=== PATIENT | male | born 1970 | race Caucasian/White ===

== ENCOUNTER → 2016-11-01 | Outpatient (CLI) | payer MEDICAID ==
[~2016-11-01] MED LIST: ARIP300S3 INJ; QUET100T4 PO
[2016-11-01 11:01] LABS: EPI LOT# 5695218
[2016-11-01 11:14] LABS: HCT (PFA) 47.2 % (39.2-51.8); PLATELET (PFA) 252 x10^3/uL (130-400)
[2016-11-01 11:17] LABS: ASPARTATE AMINO TRANSFERASE 16 U/L (15-37); BLOOD UREA NITROGEN 17 mg/dL (7-18)
[2016-11-01 12:26] LABS: EPI CARTRIDGE 118 SECONDS (72-193)
== END | disposition home or self-care (01) ==
LOC: STAR 09:58
PROVIDERS: ATTEND Neurological Surgery
DX: Z01.818 Encounter for other preprocedural examination (principal); G25.0 Essential tremor; R79.1 Abnormal coagulation profile
CPT/HCPCS: 36415; 71020; 80053; 81003; 85014; 85025; 85049; 85576; 85610; 85730; 93005

== ENCOUNTER 2016-11-05 10:42 | Day surgery (SDC) | payer MEDICAID ==
[~2016-11-05] VITALS: Ht 180.3 cm; Wt 100.9 kg
[2016-11-05 11:40] VITALS: BP 139/87
[2016-11-05] MEDS ORDERED: LIDOCAINE 1%, 2ML ONE (11:55)
[2016-11-05] MEDS ORDERED: ONDANSETRON 2MG/ML, 2ML ONE (12:38)
[2016-11-05] MEDS ORDERED: PROPOFOL 10 MG/ML, 20ML ONE (12:38)
[2016-11-05] MEDS ORDERED: ONDANSETRON 2MG/ML, 2ML IVPush PRN (14:00)
[2016-11-05] MEDS ORDERED: LABETALOL 5MG/ML, 20ML IV PRN (14:00)
[2016-11-05] MEDS ORDERED: METOPROLOL 1 MG/ML, 5ML IV PRN (14:00)
[2016-11-05] MEDS ORDERED: MEPERIDINE/PF 25MG/0.5ML IVPush PRN (14:00)
[2016-11-05] MEDS ORDERED: EPHEDRINE 50 MG/ML, 1ML IVPush PRN (14:00)
[2016-11-05] MEDS ORDERED: hydrALAzine 20 MG/ML, 1ML IV PRN (14:00)
[2016-11-05] MEDS ORDERED: ALBUTEROL SULFATE 2.5 MG/3 ML NPPB PRN (14:00)
[2016-11-05] MEDS ORDERED: MEPERIDINE/PF 25MG/0.5ML ONE (14:06)
== END 2016-11-05 15:05 | disposition home or self-care (01) ==
LOC: OUT 10:42 → EDSTATUS 13:00 → OUT 15:05
PROVIDERS: ATTEND Neurological Surgery
DX: I67.89 Other cerebrovascular disease (principal)
CPT/HCPCS: 70553; A9585; J2175; J2405; J2704

== ENCOUNTER 2016-11-11 05:40 | Inpatient (IN) | payer MEDICAID ==
[~2016-11-11] VITALS: Ht 180.3 cm; Wt 104.3 kg
[2016-11-11] MEDS ORDERED: CEFUROXIME 1.5 GM ONE ×2 (06:06→07:14)
[2016-11-11] MEDS ORDERED: LIDOCAINE/MPF 2%-EPI 1:200K, 20 ML ONE (06:06)
[2016-11-11] MEDS ORDERED: SODIUM BICARBONATE 1 MEQ/ML, 50ML VIAL ONE (06:06)
[2016-11-11] MEDS ORDERED: BUPIVACAINE/PF 0.5% ONE (06:06)
[2016-11-11] MEDS ORDERED: NITROPRUSSIDE 25 MG/ML, 2ML ONE (06:10)
[2016-11-11] MEDS ORDERED: MINERAL OIL 10 ML VIAL MC ONE (06:11)
[2016-11-11] MEDS ORDERED: BACITRACIN OINT 500U/GM, 15 GM ONE (06:11)
[2016-11-11] MEDS ORDERED: BACITRACIN 50,000 UNIT ONE (06:12)
[2016-11-11] MEDS ORDERED: LACTATED RINGERS 1,000 ML IV SCH ×2 (06:12→06:36)
[2016-11-11] MEDS ORDERED: THROMBIN 5,000 UNIT VIAL TP ONE (06:12)
[2016-11-11] MEDS ORDERED: LIDOCAINE GEL 2%, 5ML ONE (06:57)
[2016-11-11] MEDS ORDERED: PROPOFOL 10 MG/ML, 20ML ONE (07:14)
[2016-11-11] MEDS ORDERED: FENTANYL PF 100 MCG/2ML IV PRN (09:30)
[2016-11-11] MEDS ORDERED: OXYcodone 5 MG/5 ML ORAL.SOL UDC PO PRN (09:30)
[2016-11-11] MEDS ORDERED: MIDAZOLAM 1 MG/ML, 2ML IV PRN (09:30)
[2016-11-11] MEDS ORDERED: ONDANSETRON 2MG/ML, 2ML IVPush PRN (09:30)
[2016-11-11] MEDS ORDERED: hydrALAzine 20 MG/ML, 1ML IV PRN ×2 (09:30→14:00)
[2016-11-11] MEDS ORDERED: MEPERIDINE/PF 25MG/0.5ML IVPush PRN (09:30)
[2016-11-11] MEDS ORDERED: PROMETHAZINE 25 MG/ML, 1ML IV PRN (09:30)
[2016-11-11] MEDS ORDERED: LABETALOL 5MG/ML, 20ML IV PRN (09:30)
[2016-11-11] MEDS ORDERED: HYDROmorphone 2 MG/ML, 1ML ONE (11:35)
[2016-11-11] MEDS ORDERED: OXYcodone 5 MG/5 ML ORAL.SOL UDC ONE (11:35)
[2016-11-11] MEDS: HYDROmorphone 1 MG/ML, 1ML IV PRN ×4 (11:40→12:30)
[2016-11-11] MEDS ORDERED: hydrALAzine 20 MG/ML, 1ML ONE (12:09)
[2016-11-11] MEDS ORDERED: ONDANSETRON 2MG/ML, 2ML IV PRN (14:00)
[2016-11-11] MEDS ORDERED: MAGNESIUM HYDROXIDE 8%, 30ML UDC PO PRN (14:00)
[2016-11-11] MEDS ORDERED: BISACODYL 10 MG SUPP PR PRN (14:00)
[2016-11-11] MEDS ORDERED: ACETAMINOPHEN 325 MG TABLET PO PRN (14:00)
[2016-11-11] MEDS ORDERED: ACETAMINOPHEN 650 MG SUPP PR PRN (14:00)
[2016-11-11] MEDS: morphine SULFATE 10 MG/ML, 1ML IV PRN ×4 (14:21→23:28)
[2016-11-11] MEDS: HYDROcodone/APAP 5/325 TABLET PO PRN ×2 (14:21→15:37)
[2016-11-11] MEDS: NS + 20MEQ KCL 1,000 ML IV SCH (14:21)
[2016-11-11] MEDS: DEXAMETHASONE 4 MG/ML, 1ML IV SCH ×2 (14:21→20:33)
[2016-11-11 15:18] VITALS: BP_SYST 125; BP_SYST 134; BP_DIAS 80; BP_DIAS 89
[2016-11-11] MEDS: CEFUROXIME 1.5 GM in SODIUM CHLORIDE 0.9% 50 ML IVPB SCH (15:37)
[2016-11-11] MEDS: OXYcodone/APAP 5/325MG TABLET PO PRN ×2 (18:07→23:10)
[2016-11-11] MEDS: LABETALOL 5MG/ML, 20ML IV PRN (19:13)
[2016-11-11] MEDS ORDERED: QUETIAPINE 100MG TABLET PO SCH (21:00)
[2016-11-11] MEDS: DIPHENHYDRAMINE 50 MG/ML, 1ML IV PRN (21:14)
[2016-11-12] MEDS: CEFUROXIME 1.5 GM in SODIUM CHLORIDE 0.9% 50 ML IVPB SCH (00:05)
[2016-11-12] MEDS: DEXAMETHASONE 4 MG/ML, 1ML IV SCH ×2 (02:00→08:03)
[2016-11-12] MEDS: DIPHENHYDRAMINE 50 MG/ML, 1ML IV PRN (02:32)
[2016-11-12 02:45] LABS: HEMATOCRIT 45.7 % (39.2-51.8); HEMOGLOBIN 15.7 g/dL (13.7-18.0); WHITE BLOOD COUNT 13.8 x10^3/uL (3.4-10)
[2016-11-12 02:47] LABS: BLOOD UREA NITROGEN 15 mg/dL (7-18)
[2016-11-12] MEDS: morphine SULFATE 10 MG/ML, 1ML IV PRN (03:26)
[2016-11-12 04:00] VITALS: BP 128/78
[2016-11-12] MEDS: OXYcodone/APAP 5/325MG TABLET PO PRN ×2 (05:38→09:51)
[2016-11-12] MEDS: NS + 20MEQ KCL 1,000 ML IV SCH (05:39)
[2016-11-12] MEDS ORDERED: MORPHINE SULFATE 4 MG/ML, 1ML ONE (07:15)
[2016-11-12] MEDS ORDERED: MORPHINE SULFATE 4 MG/ML, 1ML IV PRN (08:00)
[2016-11-12] MEDS ORDERED: CEPH-368 PO (08:43)
[2016-11-12] MEDS ORDERED: OXYC-302 PO (08:43)
[2016-11-12] MEDS ORDERED: SENNA/DOCUSATE TABLET PO SCH (09:00)
[2016-11-12] MEDS ORDERED: QUETIAPINE 100MG TABLET PO SCH (09:00)
[2016-11-12] MEDS: LABETALOL 5MG/ML, 20ML IV PRN (09:55)
== END 2016-11-12 10:51 | disposition home or self-care (01) | DRG 27 ==
LOC: ORIP 05:40 → CCU 13:00 → DCLOUNGE 11-12 10:36
PROVIDERS: ADMIT Neurological Surgery; ATTEND Neurological Surgery
PROC: 4B00XVZ Measurement of Central Nervous Stimulator, External Approach (ICD-10-PCS; 2016-11-11)
PROC: 00H03MZ Insertion of Neurostimulator Lead into Brain, Percutaneous Approach (ICD-10-PCS; principal; 2016-11-11 07:30)
DX: G25.0 Essential tremor (principal); M19.90 Unspecified osteoarthritis, unspecified site; Z98.1 Arthrodesis status; Z87.891 Personal history of nicotine dependence; Z82.61 Family history of arthritis; Z83.3 Family history of diabetes mellitus
CPT/HCPCS: 36415; 70450; 80048; 85025; 86850; 86900; 87081; J0697; J1100; J1170; J2704; J3480; J3490; J0360; J1200; J2270; J7120

== ENCOUNTER 2016-11-12 21:40 | Emergency (ER) | payer MEDICAID ==
[~2016-11-12] VITALS: Ht 180.3 cm; Wt 104.2 kg
[~2016-11-12 21:40] MED LIST changes: +CEPH-368 PO; +OXYC-302 PO
[2016-11-12 22:32] VITALS: BP 136/94
[2016-11-12] MEDS ORDERED: BACITRACIN ZINC OINT 500U/GM, 0.9 GM ONE (22:53)
== END 2016-11-12 23:19 | disposition home or self-care (01) ==
LOC: ED 23:13
DX: G97.82 Other postprocedural complications and disorders of nervous system (principal)
CPT/HCPCS: 99281

== ENCOUNTER 2016-11-25 10:08 | Day surgery (SDC) | payer MEDICAID ==
[~2016-11-25] VITALS: Ht 180.3 cm; Wt 100.1 kg
[2016-11-25 10:25] VITALS: BP 132/85
[2016-11-25] MEDS ORDERED: LIDOCAINE 1%, 2ML ONE (10:29)
[2016-11-25] MEDS ORDERED: BUPIVACAINE/PF 0.5% ONE (10:32)
[2016-11-25] MEDS ORDERED: EPINEPHRINE 1 MG/ML, 1ML ONE (10:32)
[2016-11-25] MEDS ORDERED: BACITRACIN OINT 500U/GM, 15 GM ONE (10:33)
[2016-11-25] MEDS ORDERED: BACITRACIN 50,000 UNIT ONE (10:33)
[2016-11-25] MEDS ORDERED: THROMBIN 5,000 UNIT VIAL TP ONE (10:33)
[2016-11-25] MEDS ORDERED: FENTANYL PF 100 MCG/2ML ONE ×4 (11:01→13:23)
[2016-11-25] MEDS ORDERED: PROPOFOL 10 MG/ML, 20ML ONE (11:05)
[2016-11-25] MEDS ORDERED: CEFAZOLIN 1,000 MG ONE (11:05)
[2016-11-25] MEDS ORDERED: ONDANSETRON 2MG/ML, 2ML ONE (11:05)
[2016-11-25] MEDS ORDERED: hydrALAzine 20 MG/ML, 1ML IV PRN (11:30)
[2016-11-25] MEDS ORDERED: MEPERIDINE/PF 25MG/0.5ML IVPush PRN (11:30)
[2016-11-25] MEDS ORDERED: ONDANSETRON 2MG/ML, 2ML IVPush PRN (11:30)
[2016-11-25] MEDS ORDERED: MIDAZOLAM 1 MG/ML, 2ML IV PRN (11:30)
[2016-11-25] MEDS ORDERED: PROMETHAZINE 25 MG/ML, 1ML IV PRN (11:30)
[2016-11-25] MEDS ORDERED: LABETALOL 5MG/ML, 20ML IV PRN (11:30)
[2016-11-25] MEDS ORDERED: ACETAMINOPHEN 325 MG TABLET PO PRN (11:30)
[2016-11-25] MEDS ORDERED: ACETAMINOPHEN 650 MG/20.3 ML UDC ONE (12:31)
[2016-11-25] MEDS ORDERED: OXYcodone 5 MG/5 ML ORAL.SOL UDC ONE ×2 (12:31→12:52)
[2016-11-25] MEDS ORDERED: ACETAMINOPHEN 325 MG TABLET ONE (12:31)
[2016-11-25] MEDS: FENTANYL PF 100 MCG/2ML IV PRN ×4 (12:40→13:52)
[2016-11-25] MEDS: OXYcodone 5 MG/5 ML ORAL.SOL UDC PO PRN ×2 (12:40→12:50)
[2016-11-25] MEDS ORDERED: HYDROmorphone 1 MG/ML, 1ML ONE ×2 (13:06→13:46)
[2016-11-25] MEDS: HYDROmorphone 1 MG/ML, 1ML IV PRN ×5 (13:09→14:00)
[2016-11-25] MEDS ORDERED: MIDAZOLAM 1 MG/ML, 2ML ONE (13:23)
[2016-11-25] MEDS ORDERED: LABETALOL 5MG/ML, 20ML ONE (13:42)
[2016-11-25] MEDS ORDERED: OXYcodone IR 5MG TABLET PO ONE (15:30)
== END 2016-11-25 16:00 | disposition home or self-care (01) ==
LOC: OUT 10:08
PROVIDERS: ATTEND Neurological Surgery
DX: G25.0 Essential tremor (principal); Z98.890 Other specified postprocedural states; Z87.39 Personal history of other diseases of the musculoskeletal system and connective tissue; Z87.891 Personal history of nicotine dependence
CPT/HCPCS: 64568; 70250; 76000; 95971; C1767; C1883; J0171; J0690; J1170; J2250; J2405; J2704; J3010; J3490; L8681

== ENCOUNTER 2016-11-30 09:11 | Emergency (ER) | payer MEDICAID ==
[~2016-11-30] VITALS: Ht 180.3 cm; Wt 99.0 kg
[2016-11-30] MEDS ORDERED: ONDANSETRON 2MG/ML, 2ML ONE (09:57)
[2016-11-30] MEDS ORDERED: HYDROmorphone 1 MG/ML, 1ML ONE ×2 (09:57→11:07)
[2016-11-30] MEDS ORDERED: ONDANSETRON 2MG/ML, 2ML IVPush ONE (10:00)
[2016-11-30] MEDS ORDERED: SODIUM CHLORIDE FLUSH 10ML SYR IVF ONE (10:00)
[2016-11-30] MEDS ORDERED: DIAZEPAM 5 MG/ML, 2ML IVPush ONE (10:00)
[2016-11-30] MEDS: HYDROmorphone 1 MG/ML, 1ML IVPush PRN ×2 (10:02→11:10)
[2016-11-30 10:04] LABS: HEMOGLOBIN 16.7 g/dL (13.7-18.0); WHITE BLOOD COUNT 8.2 x10^3/uL (3.4-10)
[2016-11-30 10:13] LABS: BLOOD UREA NITROGEN 17 mg/dL (7-18)
[2016-11-30 13:04] VITALS: BP 131/89
== END 2016-11-30 13:41 | disposition home or self-care (01) ==
LOC: ED 09:37
DX: G44.041 Chronic paroxysmal hemicrania, intractable (principal)
CPT/HCPCS: 36415; 70450; 80048; 82040; 85025; 96374; 96375; 96376; 99285; J1170; J2405; J3360

== ENCOUNTER 2017-11-01 05:17 | Day surgery (SDC) | payer MEDICAID ==
[2017-10-20 10:00] VITALS: BP 117/80
[~2017-11-01] VITALS: Ht 180.3 cm; Wt 80.8 kg
[~2017-11-01 05:17] MED LIST changes: +BENZ2AMP4 INJ; +Cogentin PO
[2017-11-01] MEDS ORDERED: LACTATED RINGERS 1,000 ML IV SCH (05:51)
[2017-11-01 05:54] VITALS: BP 117/80
[2017-11-01] MEDS ORDERED: LIDOCAINE-MPF 1%, 2ML INFIL ONE (06:00)
[2017-11-01] MEDS ORDERED: BACITRACIN 50,000 UNIT ONE (06:47)
[2017-11-01] MEDS ORDERED: EPINEPHRINE 1 MG/ML, 1ML ONE (06:47)
[2017-11-01] MEDS ORDERED: BUPIVACAINE/PF 0.5% ONE (06:47)
[2017-11-01] MEDS ORDERED: THROMBIN 5,000 UNIT VIAL TP ONE (06:47)
[2017-11-01] MEDS ORDERED: BACITRACIN OINT 500U/GM, 15 GM ONE (06:48)
[2017-11-01] MEDS ORDERED: MIDAZOLAM 1 MG/ML, 2ML ONE (07:01)
[2017-11-01] MEDS ORDERED: FENTANYL PF 250 MCG/5ML ONE (07:02)
[2017-11-01] MEDS ORDERED: LIDOCAINE-MPF 2% ,5ML ONE (07:04)
[2017-11-01] MEDS ORDERED: PROPOFOL 10 MG/ML, 20ML ONE (07:04)
[2017-11-01] MEDS ORDERED: OXYcodone 5 MG/5 ML ORAL.SOL UDC PO PRN (07:30)
[2017-11-01] MEDS ORDERED: FENTANYL PF 100 MCG/2ML IV PRN (07:30)
[2017-11-01] MEDS ORDERED: MORPHINE SULFATE 4 MG/ML, 1ML IVPush PRN (07:30)
[2017-11-01] MEDS ORDERED: KETOROLAC 30 MG/1 ML ONE (07:30)
[2017-11-01] MEDS ORDERED: ACETAMINOPHEN 325 MG TABLET PO PRN (07:30)
[2017-11-01] MEDS ORDERED: MEPERIDINE/PF 25MG/0.5ML IVPush PRN (07:30)
[2017-11-01] MEDS ORDERED: CEFAZOLIN 1,000 MG ONE (07:30)
[2017-11-01] MEDS ORDERED: ONDANSETRON 2MG/ML, 2ML IV PRN (07:30)
[2017-11-01] MEDS ORDERED: LABETALOL 5MG/ML, 20ML IV PRN (07:30)
[2017-11-01] MEDS ORDERED: ONDANSETRON 2MG/ML, 2ML ONE (07:47)
[2017-11-01] MEDS ORDERED: DEXAMETHASONE 4 MG/ML, 1ML ONE ×3 (07:47)
== END 2017-11-01 10:40 | disposition home or self-care (01) ==
LOC: OUT 05:17
PROVIDERS: ATTEND Neurological Surgery
DX: Z45.49 Encounter for adjustment and management of other implanted nervous system device (principal); G25.0 Essential tremor; Z87.39 Personal history of other diseases of the musculoskeletal system and connective tissue; Z98.890 Other specified postprocedural states; Z87.891 Personal history of nicotine dependence; Z79.899 Other long term (current) drug therapy; Z95.0 Presence of cardiac pacemaker
CPT/HCPCS: 36415; 61886; 86850; 86900; C1767; J0171; J0690; J1100; J1885; J2250; J2405; J2704; J3010; J3490; J7120

== ENCOUNTER 2019-05-08 08:00 | Outpatient (CLI) | payer MEDICAID ==
[2019-05-08] MEDS ORDERED: NONE PER PT (08:30)
[2019-05-08 08:47] LABS: BASOPHILS # (AUTO) 0.07 x10^3/uL (0-0.1); BASOPHILS % (AUTO) 1 % (0-1); EOSINOPHILS # (AUTO) 0.06 x10^3/uL (0-0.4); EOSINOPHILS % (AUTO) 1 % (1-7); LYMPHOCYTES # (AUTO) 1.91 x10^3/uL (1-3.4); LYMPHOCYTES % (AUTO) 40 % (22-44); MD NO; MEAN CORPUSCULAR HGB CONC 34.7 g/dL (33.2-36.2); MEAN PLATELET VOLUME 6.7 fL (7.4-10.4); MONOCYTES # (AUTO) 0.54 x10^3/uL (0.2-0.8); MONOCYTES % (AUTO) 11 % (2-9); NEUTROPHILS # (AUTO) 2.17 x10^3/uL (1.8-6.8); NEUTROPHILS % (AUTO) 46 % (42-75); PLATELET COUNT 323 x10^3/uL (130-400); RED BLOOD COUNT 4.65 x10^6/uL (4.38-5.82); RED CELL DISTRIBUTION WIDTH 13.4 % (9.4-14.8)
[2019-05-08 08:56] LABS: ANION GAP 4 mmol/L (5-15); CALCIUM 8.9 mg/dL (8.5-10.1); CHLORIDE 116 mmol/L (98-107); CREATININE 1.01 mg/dL (0.7-1.3)
[2019-05-08 08:57] LABS: INTERNATIONAL NORMALIZED RATIO 0.98 (0.93-1.1); PROTHROMBIN TIME 10.4 Seconds (9.6-11.5)
== END 2019-05-08 23:59 | disposition home or self-care (01) ==
LOC: STAR 08:00
PROVIDERS: ATTEND Neurological Surgery
DX: Z01.818 Encounter for other preprocedural examination (principal); G25.0 Essential tremor
CPT/HCPCS: 36415; 80048; 85025; 85610; 85730

== ENCOUNTER 2019-05-17 05:27 | Day surgery (SDC) | payer MEDICAID ==
[~2019-05-17] VITALS: Ht 182.9 cm; Wt 73.8 kg
[~2019-05-17 05:27] MED LIST changes: +NONE PER PT
[2019-05-17] MEDS ORDERED: LACTATED RINGERS 1,000 ML IV SCH (06:08)
[2019-05-17 06:18] VITALS: BP 131/92
[2019-05-17] MEDS ORDERED: LIDOCAINE-MPF 1%, 2ML ONE (06:26)
[2019-05-17] MEDS ORDERED: LIDOCAINE-MPF 1%, 2ML INFIL ONE (06:30)
[2019-05-17] MEDS ORDERED: BACITRACIN OINT 500U/GM, 15 GM ONE (07:04)
[2019-05-17] MEDS ORDERED: BUPIVACAINE/PF 0.5% ONE (07:04)
[2019-05-17] MEDS ORDERED: EPINEPHRINE 1 MG/ML, 1ML ONE (07:04)
[2019-05-17] MEDS ORDERED: BACITRACIN 50,000 UNIT ONE (07:04)
[2019-05-17] MEDS ORDERED: MIDAZOLAM 1 MG/ML, 2ML ONE (07:20)
[2019-05-17] MEDS ORDERED: FENTANYL PF 250 MCG/5ML ONE (07:20)
[2019-05-17] MEDS ORDERED: PROMETHAZINE 12.5 MG SUPP PR PRN (07:30)
[2019-05-17] MEDS ORDERED: HYDROmorphone 2 MG/ML, 1ML IVPush PRN (07:30)
[2019-05-17] MEDS ORDERED: ONDANSETRON 2MG/ML, 2ML IV PRN (07:30)
[2019-05-17] MEDS ORDERED: FENTANYL PF 100 MCG/2ML IV PRN (07:30)
[2019-05-17] MEDS ORDERED: PROMETHAZINE 25 MG SUPP PR PRN (07:30)
[2019-05-17] MEDS ORDERED: LORazepam 2 MG/ML, 1ML IVPush PRN (07:30)
[2019-05-17] MEDS ORDERED: DIAZEPAM 5 MG/ML, 2ML IVPush PRN (07:30)
[2019-05-17] MEDS ORDERED: ACETAMINOPHEN 325 MG TABLET PO PRN (07:30)
[2019-05-17] MEDS ORDERED: LIDOCAINE PF 2%, 5ML ONE (07:38)
[2019-05-17] MEDS ORDERED: CEFAZOLIN 1,000 MG ONE (07:57)
[2019-05-17] MEDS ORDERED: ONDANSETRON 2MG/ML, 2ML ONE (07:57)
[2019-05-17] MEDS ORDERED: PROPOFOL 10 MG/ML, 20ML ONE (07:57)
[2019-05-17] MEDS ORDERED: DEXAMETHASONE 4 MG/ML, 1ML ONE (07:57)
[2019-05-17] MEDS ORDERED: OXYcodone 5 MG/5 ML ORAL.SOL UDC ONE (08:58)
[2019-05-17] MEDS ORDERED: ACETAMINOPHEN 650 MG/20.3 ML UDC ONE (08:58)
[2019-05-17] MEDS: OXYcodone 5 MG/5 ML ORAL.SOL UDC PO PRN ×2 (09:00→09:30)
== END 2019-05-17 10:25 | disposition home or self-care (01) ==
LOC: OUT 05:27
PROVIDERS: ATTEND Neurological Surgery
DX: Z46.2 Encounter for fitting and adjustment of other devices related to nervous system and special senses (principal); G25.0 Essential tremor; Z79.899 Other long term (current) drug therapy; Z98.1 Arthrodesis status; Z82.61 Family history of arthritis; Z82.49 Family history of ischemic heart disease and other diseases of the circulatory system; Z83.3 Family history of diabetes mellitus
CPT/HCPCS: 61886; C1767; J0171; J0690; J1100; J2250; J2405; J2704; J3010

== ENCOUNTER 2020-03-13 08:59 | Day surgery (SDC) | payer MEDICAID ==
[2020-03-11 09:28] LABS: BASOPHILS % (AUTO) 1 % (0-1); EOSINOPHILS % (AUTO) 2 % (1-7); LYMPHOCYTES % (AUTO) 30 % (22-44); MEAN CORPUSCULAR HEMOGLOBIN 31.7 pg (27.5-34.5); MEAN CORPUSCULAR HGB CONC 35.3 g/dL (33.2-36.2); MEAN PLATELET VOLUME 7.3 fL (7.4-10.4); MONOCYTES % (AUTO) 9 % (2-9); NEUTROPHILS % (AUTO) 59 % (42-75); PLATELET COUNT 283 x10^3/uL (130-400); RED CELL DISTRIBUTION WIDTH 12.9 % (9.4-14.8)
[2020-03-11 09:35] LABS: MD NO
[2020-03-11 09:39] LABS: INTERNATIONAL NORMALIZED RATIO 0.99 (0.93-1.1); PROTHROMBIN TIME 10.5 Seconds (9.6-11.5)
[2020-03-11 09:40] LABS: ANION GAP 4 mmol/L (5-15); CALCIUM 8.7 mg/dL (8.5-10.1); CHLORIDE 107 mmol/L (98-107); CREATININE 1.17 mg/dL (0.7-1.3)
[~2020-03-13] VITALS: Ht 182.9 cm; Wt 71.2 kg
[~2020-03-13 08:59] MED LIST changes: +BACITRACIN 50,000 UNIT ONE; +BUPIVACAINE/PF 0.25% ONE; +EPINEPHRINE 1 MG/ML, 1ML ONE; +NEOSPORIN OINT, 15GM ONE
[2020-03-13] MEDS ORDERED: CHLORHEXIDINE 15 ML UDC MM ONE (09:30)
[2020-03-13] MEDS ORDERED: LACTATED RINGERS 1,000 ML IV SCH (09:30)
[2020-03-13 09:43] VITALS: BP 123/78
[2020-03-13] MEDS ORDERED: LIDOCAINE-MPF 1%, 2ML ONE (10:07)
[2020-03-13] MEDS ORDERED: LIDOCAINE-MPF 1%, 2ML INFIL ONE (10:30)
[2020-03-13] MEDS ORDERED: MIDAZOLAM 1 MG/ML, 2ML ONE ×2 (10:57→10:58)
[2020-03-13] MEDS ORDERED: FENTANYL PF 100 MCG/2ML ONE ×2 (10:58→13:00)
[2020-03-13] MEDS ORDERED: DEXAMETHASONE 4 MG/ML, 1ML ONE (11:11)
[2020-03-13] MEDS ORDERED: PROPOFOL 10 MG/ML, 20ML ONE (11:11)
[2020-03-13] MEDS ORDERED: CEFAZOLIN 1,000 MG ONE (11:11)
[2020-03-13] MEDS ORDERED: ONDANSETRON 2MG/ML, 2ML ONE (11:11)
[2020-03-13] MEDS ORDERED: VANCOMYCIN 500 MG ONE (11:31)
[2020-03-13] MEDS ORDERED: EPHEDRINE 50 MG/ML, 1ML IVPush PRN ×2 (12:00→14:30)
[2020-03-13] MEDS ORDERED: MEPERIDINE/PF 25MG/0.5ML IVPush PRN ×2 (12:00→14:30)
[2020-03-13] MEDS ORDERED: PROMETHAZINE 25 MG/ML, 1ML IVPush PRN ×2 (12:00→14:30)
[2020-03-13] MEDS ORDERED: LABETALOL 5MG/ML, 20ML IV PRN ×2 (12:00→14:30)
[2020-03-13] MEDS ORDERED: ACETAMINOPHEN 325 MG TABLET PO PRN ×2 (12:00→14:30)
[2020-03-13] MEDS ORDERED: LORazepam 2 MG/ML, 1ML IVPush PRN ×2 (12:00→14:30)
[2020-03-13] MEDS ORDERED: hydrALAzine 20 MG/ML, 1ML IV PRN ×2 (12:00→14:30)
[2020-03-13] MEDS ORDERED: HYDROmorphone 1 MG/ML, 1ML INJ IVPush PRN ×2 (12:00→14:30)
[2020-03-13] MEDS ORDERED: METHOCARBAMOL 1,000 MG in DEXTROSE 5% 100 ML IV PRN ×2 (12:00→14:30)
[2020-03-13] MEDS ORDERED: ONDANSETRON 2MG/ML, 2ML IVPush PRN ×2 (12:00→14:30)
[2020-03-13] MEDS ORDERED: FENTANYL PF 100 MCG/2ML IV PRN ×2 (12:00→14:30)
[2020-03-13] MEDS ORDERED: VANCOMYCIN 500 MG IVPB ONE (12:00)
[2020-03-13] MEDS ORDERED: OXYcodone 5 MG/5 ML ORAL.SOL UDC PO PRN ×2 (12:00→14:30)
[2020-03-13] MEDS ORDERED: OXYcodone 5 MG/5 ML ORAL.SOL UDC ONE (13:00)
[2020-03-13] MEDS ORDERED: CEPH-368 PO (13:09)
[2020-03-13] MEDS ORDERED: OXYC-302 PO (13:10)
[2020-03-13] MEDS ORDERED: KETOROLAC 30 MG/1 ML IVPush PRN (14:30)
== END 2020-03-13 23:59 | disposition home or self-care (01) ==
LOC: OUT 08:59
PROVIDERS: ATTEND Neurological Surgery
DX: Z45.42 Encounter for adjustment and management of neurostimulator (principal); G25.0 Essential tremor; M19.90 Unspecified osteoarthritis, unspecified site; F12.90 Cannabis use, unspecified, uncomplicated; Z20.828 Contact with and (suspected) exposure to other viral communicable diseases; Z88.1 Allergy status to other antibiotic agents; Z87.891 Personal history of nicotine dependence; Z79.2 Long term (current) use of antibiotics; Z79.899 Other long term (current) drug therapy; Z72.89 Other problems related to lifestyle; Z82.49 Family history of ischemic heart disease and other diseases of the circulatory system; Z83.3 Family history of diabetes mellitus
CPT/HCPCS: 36415; 61885; 80048; 85025; 85610; 85730; 87070; 87075; 87076; 87186; 87205; C1767; C1883; J0171; J0690; J1100; J1170; J2250; J2405; J2704; J3010; J3370; J7120; U0003

== ENCOUNTER 2020-05-25 07:50 | Inpatient (IN) | payer MEDICAID, OTHER ==
[~2020-05-25] VITALS: Ht 182.9 cm; Wt 68.5 kg
[~2020-05-25 07:50] MED LIST changes: -BACITRACIN 50,000 UNIT ONE; -BUPIVACAINE/PF 0.25% ONE; -EPINEPHRINE 1 MG/ML, 1ML ONE; -NEOSPORIN OINT, 15GM ONE; -OXYC-302 PO; +OXYC1TAB14 PO
--- NOTE | 2020-05-25 08:22 | NUR ---
PT BIB FROM [facility] FOR POSSIBLE INFECTION TO LEFT CHEST. PT HAS A DEEP BRAIN STIMULATOR TO PREVENT TREMORS BUT THE INCISION SITE HAS POSSIBLY BECOME INFECTED. THE AREA IS RED, TENDER TO TOUCH AND HAS SOME CLEAR DRAINAGE. PT RESTING IN [facility]. OFFICER BEDSIDE. CONNECTED TO MONITORING EQUIPMENT
--- NOTE | 2020-05-25 08:39 | NUR ---
requested records from [facility].
[2020-05-25] MEDS ORDERED: KETOROLAC 30 MG/1 ML ONE (08:56)
[2020-05-25] MEDS ORDERED: SODIUM CHLORIDE FLUSH 10ML SYR IVF ONE (09:00)
[2020-05-25] MEDS ORDERED: KETOROLAC 30 MG/1 ML IVPush ONE (09:00)
[2020-05-25 09:10] LABS: BASOPHILS % (AUTO) 1 % (0-1); EOSINOPHILS % (AUTO) 1 % (1-7); LYMPHOCYTES % (AUTO) 35 % (22-44); MEAN CORPUSCULAR HEMOGLOBIN 31.3 pg (27.5-34.5); MEAN CORPUSCULAR HGB CONC 34.9 g/dL (33.2-36.2); MEAN PLATELET VOLUME 7.4 fL (7.4-10.4); MONOCYTES % (AUTO) 8 % (2-9); NEUTROPHILS % (AUTO) 55 % (42-75); PLATELET COUNT 268 x10^3/uL (130-400); RED BLOOD COUNT 5.08 x10^6/uL (4.38-5.82); RED CELL DISTRIBUTION WIDTH 13.5 % (9.4-14.8)
[2020-05-25 09:15] LABS: MD NO
[2020-05-25 09:16] LABS: ALBUMIN 4.2 g/dL (3.4-5.0); ANION GAP 7 mmol/L (5-15); CALCIUM 9.2 mg/dL (8.5-10.1); CHLORIDE 108 mmol/L (98-107)
[2020-05-25] MEDS ORDERED: HYDROcodone/APAP 5/325 TABLET PO ONE (09:30)
[2020-05-25] MEDS ORDERED: HYDROcodone/APAP 5/325 TABLET ONE (09:36)
--- NOTE | 2020-05-25 09:41 | NUR ---
medicated per mar
[2020-05-25] MEDS ORDERED: GABAPENTIN 100 MG CAPSULE PO ONE (10:00)
--- NOTE | 2020-05-25 11:20 | NUR ---
pt to be admitted. medicated per mar
[2020-05-25] MEDS ORDERED: VANCOMYCIN PER PHARMACY MC PRN ×2 (11:30→13:00)
[2020-05-25] MEDS ORDERED: AMPICILLIN/SULBACTAM 3 GM in SODIUM CHLORIDE 0.9% 100 ML IV ONE (11:30)
[2020-05-25] MEDS ORDERED: VANCOMYCIN 1,800 MG in SODIUM CHLORIDE 0.9% 250 ML IV ONE (11:30)
[2020-05-25 11:59] VITALS: BP 138/88
[2020-05-25] MEDS ORDERED: VANCOMYCIN PER PHARMACY MC ONE (13:00)
[2020-05-25] MEDS ORDERED: ONDANSETRON 2MG/ML, 2ML IVPush PRN (13:00)
[2020-05-25] MEDS ORDERED: QUET100T4 PO (13:12)
[2020-05-25] MEDS ORDERED: ARIP15TA3 PO (13:12)
[2020-05-25] MEDS ORDERED: cogentin PO (13:15)
[2020-05-25] MEDS ORDERED: PHARMACOKINETIC CONSULTATION MC ONE (14:00)
[2020-05-25] MEDS ORDERED: PHARMACOKINETIC MONITORING MC PRN (14:00)
[2020-05-25 14:02] VITALS: BP 128/80
[2020-05-25] MEDS: OXYcodone IR 5MG TABLET PO PRN ×2 (15:31→22:21)
[2020-05-25] MEDS: PIPERACILLIN/TAZO/PMX 3.375GM 50 ML IV SCH ×2 (16:59→22:31)
[2020-05-25 18:51] VITALS: BP 123/80
[2020-05-25] MEDS: SODIUM CHLORIDE 0.9% 1,000 ML IV SCH (22:19)
[2020-05-25] MEDS: BENZTROPINE 1 MG TABLET PO SCH (22:20)
[2020-05-25] MEDS: QUETIAPINE 100MG TABLET PO SCH (22:20)
[2020-05-26] MEDS: VANCOMYCIN 1,300 MG in SODIUM CHLORIDE 0.9% 250 ML IV SCH ×3 (00:33→21:29)
[2020-05-26 02:45] VITALS: BP 122/79
[2020-05-26] MEDS: PIPERACILLIN/TAZO/PMX 3.375GM 50 ML IV SCH ×4 (05:12→23:37)
[2020-05-26] MEDS: OXYcodone IR 5MG TABLET PO PRN ×5 (05:14→21:32)
[2020-05-26 06:14] LABS: BASOPHILS % (AUTO) 1 % (0-1); EOSINOPHILS % (AUTO) 3 % (1-7); LYMPHOCYTES % (AUTO) 45 % (22-44); MEAN CORPUSCULAR HEMOGLOBIN 31.1 pg (27.5-34.5); MEAN CORPUSCULAR HGB CONC 34.9 g/dL (33.2-36.2); MEAN PLATELET VOLUME 7.4 fL (7.4-10.4); MONOCYTES % (AUTO) 7 % (2-9); NEUTROPHILS % (AUTO) 44 % (42-75); PLATELET COUNT 236 x10^3/uL (130-400); RED BLOOD COUNT 4.74 x10^6/uL (4.38-5.82); RED CELL DISTRIBUTION WIDTH 13.3 % (9.4-14.8)
[2020-05-26 06:23] LABS: ALBUMIN 3.1 g/dL (3.4-5.0); ANION GAP 7 mmol/L (5-15); CALCIUM 8.2 mg/dL (8.5-10.1); CHLORIDE 109 mmol/L (98-107)
[2020-05-26 06:37] LABS: ALANINE AMINOTRANSFERASE 19 U/L (12-78); ALKALINE PHOSPHATASE 78 U/L (45-117); BILIRUBIN,TOTAL 0.3 mg/dL (0.2-1.0); CREATININE 1.03 mg/dL (0.7-1.3); MD NO; TOTAL PROTEIN 5.8 g/dL (6.4-8.2)
[2020-05-26 07:10] VITALS: BP 121/82
[2020-05-26] MEDS: ACETAMINOPHEN 325 MG TABLET PO PRN (09:15)
[2020-05-26] MEDS: BENZTROPINE 1 MG TABLET PO SCH ×2 (09:16→21:30)
[2020-05-26] MEDS: ARIPIPRAZOLE 15 MG TABLET PO SCH (09:16)
[2020-05-26 14:14] VITALS: BP 120/76
[2020-05-26 19:00] VITALS: BP 107/68
[2020-05-26] MEDS: QUETIAPINE 100MG TABLET PO SCH (21:30)
[2020-05-26] MEDS: SODIUM CHLORIDE 0.9% 1,000 ML IV SCH (21:30)
[2020-05-27 02:51] VITALS: BP 102/68
[2020-05-27] MEDS: OXYcodone IR 5MG TABLET PO PRN ×5 (02:55→20:11)
[2020-05-27] MEDS: PIPERACILLIN/TAZO/PMX 3.375GM 50 ML IV SCH ×4 (05:24→23:14)
[2020-05-27] MEDS: VANCOMYCIN 1,300 MG in SODIUM CHLORIDE 0.9% 250 ML IV SCH ×2 (06:43→18:04)
[2020-05-27 07:30] LABS: BASOPHILS % (AUTO) 1 % (0-1); EOSINOPHILS % (AUTO) 3 % (1-7); LYMPHOCYTES % (AUTO) 45 % (22-44); MEAN CORPUSCULAR HGB CONC 34.7 g/dL (33.2-36.2); MEAN PLATELET VOLUME 7.3 fL (7.4-10.4); MONOCYTES % (AUTO) 9 % (2-9); NEUTROPHILS % (AUTO) 42 % (42-75); PLATELET COUNT 217 x10^3/uL (130-400); RED CELL DISTRIBUTION WIDTH 13.1 % (9.4-14.8)
[2020-05-27 07:31] LABS: MD NO
[2020-05-27 07:41] LABS: CALCIUM 8.7 mg/dL (8.5-10.1); CREATININE 1.09 mg/dL (0.7-1.3)
[2020-05-27] MEDS: ARIPIPRAZOLE 15 MG TABLET PO SCH (07:44)
[2020-05-27] MEDS: BENZTROPINE 1 MG TABLET PO SCH ×2 (07:44→20:11)
[2020-05-27] MEDS ORDERED: NICOTINE 14MG/24 HR PATCH.TD24 TD ONE (08:00)
[2020-05-27 08:04] LABS: ANION GAP 5 mmol/L (5-15); CHLORIDE 108 mmol/L (98-107)
[2020-05-27 08:05] VITALS: BP 112/73
[2020-05-27] MEDS: POLYETHYLENE GLYCOL 17 GM PACKET PO PRN (11:49)
[2020-05-27 13:53] VITALS: BP 110/67
[2020-05-27] MEDS: SODIUM CHLORIDE 0.9% 1,000 ML IV SCH (14:10)
[2020-05-27] MEDS: ACETAMINOPHEN 325 MG TABLET PO PRN (17:16)
[2020-05-27 19:10] VITALS: BP 112/76
[2020-05-27] MEDS: QUETIAPINE 100MG TABLET PO SCH (20:11)
[2020-05-28 04:13] VITALS: BP 113/73
[2020-05-28] MEDS: OXYcodone IR 5MG TABLET PO PRN ×5 (04:21→20:55)
[2020-05-28] MEDS: PIPERACILLIN/TAZO/PMX 3.375GM 50 ML IV SCH ×4 (05:15→22:49)
[2020-05-28] MEDS: SODIUM CHLORIDE 0.9% 1,000 ML IV SCH ×2 (06:05→22:49)
[2020-05-28] MEDS: VANCOMYCIN 1,300 MG in SODIUM CHLORIDE 0.9% 250 ML IV SCH (06:05)
[2020-05-28 06:28] VITALS: BP 120/81
[2020-05-28] MEDS: ARIPIPRAZOLE 15 MG TABLET PO SCH (08:36)
[2020-05-28] MEDS: BENZTROPINE 1 MG TABLET PO SCH ×2 (08:36→20:54)
[2020-05-28] MEDS: NICOTINE 14MG/24 HR PATCH.TD24 TD SCH (09:01)
[2020-05-28] MEDS: POLYETHYLENE GLYCOL 17 GM PACKET PO PRN (11:04)
[2020-05-28 13:30] VITALS: BP 129/84
[2020-05-28 20:11] VITALS: BP 128/81
[2020-05-28] MEDS: QUETIAPINE 100MG TABLET PO SCH (20:54)
[2020-05-29 03:01] VITALS: BP 117/74
[2020-05-29] MEDS: OXYcodone IR 5MG TABLET PO PRN ×6 (03:08→22:08)
[2020-05-29] MEDS: PIPERACILLIN/TAZO/PMX 3.375GM 50 ML IV SCH ×3 (05:21→18:02)
[2020-05-29 07:15] VITALS: BP 117/76
[2020-05-29 07:31] LABS: BASOPHILS % (AUTO) 1 % (0-1); EOSINOPHILS % (AUTO) 4 % (1-7); LYMPHOCYTES % (AUTO) 44 % (22-44); MEAN CORPUSCULAR HEMOGLOBIN 30.7 pg (27.5-34.5); MEAN CORPUSCULAR HGB CONC 34.4 g/dL (33.2-36.2); MONOCYTES % (AUTO) 10 % (2-9); NEUTROPHILS % (AUTO) 41 % (42-75); PLATELET COUNT 238 x10^3/uL (130-400); RED BLOOD COUNT 4.77 x10^6/uL (4.38-5.82); RED CELL DISTRIBUTION WIDTH 13.3 % (9.4-14.8)
[2020-05-29 07:32] LABS: MD NO
[2020-05-29 07:43] LABS: ANION GAP 4 mmol/L (5-15); CALCIUM 8.9 mg/dL (8.5-10.1); CHLORIDE 106 mmol/L (98-107)
[2020-05-29] MEDS: BENZTROPINE 1 MG TABLET PO SCH ×2 (08:18→20:43)
[2020-05-29] MEDS: ARIPIPRAZOLE 15 MG TABLET PO SCH (08:18)
[2020-05-29] MEDS: NICOTINE 14MG/24 HR PATCH.TD24 TD SCH (08:19)
[2020-05-29 08:46] LABS: HCT (SEDRATE) 42.5 % (39.2-51.8)
[2020-05-29] MEDS: POLYETHYLENE GLYCOL 17 GM PACKET PO PRN (11:36)
[2020-05-29] MEDS ORDERED: OMNIPAQUE 350 MG/ML, 75ML BOTTLE ONE (12:05)
[2020-05-29] MEDS: SODIUM CHLORIDE 0.9% 1,000 ML IV SCH (13:17)
[2020-05-29 13:33] VITALS: BP 134/88
[2020-05-29] MEDS: morphine SULFATE 10 MG/ML, 1ML IVPush PRN ×2 (18:12→21:19)
[2020-05-29 19:33] VITALS: BP 123/83
[2020-05-29] MEDS: QUETIAPINE 100MG TABLET PO SCH (20:44)
[2020-05-30 00:56] VITALS: BP 104/70
[2020-05-30] MEDS: morphine SULFATE 10 MG/ML, 1ML IVPush PRN ×4 (01:07→20:04)
[2020-05-30] MEDS: PIPERACILLIN/TAZO/PMX 3.375GM 50 ML IV SCH ×4 (01:31→20:03)
[2020-05-30] MEDS: SODIUM CHLORIDE 0.9% 1,000 ML IV SCH (01:35)
[2020-05-30] MEDS: OXYcodone IR 5MG TABLET PO PRN ×4 (05:19→22:05)
[2020-05-30 07:39] VITALS: BP 128/83
[2020-05-30] MEDS: NICOTINE 14MG/24 HR PATCH.TD24 TD SCH (07:49)
[2020-05-30] MEDS: ARIPIPRAZOLE 15 MG TABLET PO SCH (07:50)
[2020-05-30] MEDS: BENZTROPINE 1 MG TABLET PO SCH ×2 (07:50→20:03)
[2020-05-30] MEDS: POLYETHYLENE GLYCOL 17 GM PACKET PO PRN (09:54)
[2020-05-30 12:33] VITALS: BP 126/81
[2020-05-30 19:47] VITALS: BP 144/80
[2020-05-30 19:52] VITALS: BP 109/69
[2020-05-30] MEDS: QUETIAPINE 100MG TABLET PO SCH (20:03)
[2020-05-31 01:07] VITALS: BP 115/76
[2020-05-31] MEDS: PIPERACILLIN/TAZO/PMX 3.375GM 50 ML IV SCH ×4 (01:45→20:42)
[2020-05-31] MEDS: OXYcodone IR 5MG TABLET PO PRN ×4 (02:07→22:39)
[2020-05-31 07:44] VITALS: BP 126/76
[2020-05-31] MEDS: ARIPIPRAZOLE 15 MG TABLET PO SCH (08:15)
[2020-05-31] MEDS: BENZTROPINE 1 MG TABLET PO SCH ×3 (08:15→22:39)
[2020-05-31] MEDS: NICOTINE 14MG/24 HR PATCH.TD24 TD SCH (08:17)
[2020-05-31] MEDS ORDERED: KETOROLAC 30 MG/1 ML IVPush ONE (10:00)
[2020-05-31] MEDS: morphine SULFATE 10 MG/ML, 1ML IVPush PRN (12:42)
[2020-05-31 13:39] VITALS: BP 124/81
[2020-05-31] MEDS: POLYETHYLENE GLYCOL 17 GM PACKET PO PRN (15:25)
[2020-05-31 19:36] VITALS: BP 135/89
[2020-05-31] MEDS: QUETIAPINE 100MG TABLET PO SCH ×2 (20:44→22:39)
[2020-06-01 01:41] VITALS: BP 99/61
[2020-06-01] MEDS: PIPERACILLIN/TAZO/PMX 3.375GM 50 ML IV SCH ×4 (02:28→20:44)
[2020-06-01] MEDS: OXYcodone IR 5MG TABLET PO PRN ×4 (05:11→16:46)
[2020-06-01 08:14] VITALS: BP 127/78
[2020-06-01] MEDS: ARIPIPRAZOLE 15 MG TABLET PO SCH (08:26)
[2020-06-01] MEDS: BENZTROPINE 1 MG TABLET PO SCH ×2 (08:26→20:41)
[2020-06-01] MEDS: NICOTINE 14MG/24 HR PATCH.TD24 TD SCH (08:27)
[2020-06-01] MEDS: POLYETHYLENE GLYCOL 17 GM PACKET PO PRN (12:54)
[2020-06-01 14:02] VITALS: BP 138/90
[2020-06-01] MEDS: MORPHINE SULFATE 4 MG/ML, 1ML IVPush PRN ×2 (14:09→20:40)
[2020-06-01 18:34] VITALS: BP 123/76
[2020-06-01] MEDS: ONDANSETRON ODT 4 MG PO PRN (20:41)
[2020-06-01] MEDS: QUETIAPINE 100MG TABLET PO SCH (20:41)
[2020-06-02] MEDS: OXYcodone IR 5MG TABLET PO PRN ×5 (02:27→23:47)
[2020-06-02] MEDS: PIPERACILLIN/TAZO/PMX 3.375GM 50 ML IV SCH ×4 (02:27→20:30)
[2020-06-02 02:31] VITALS: BP 114/78
[2020-06-02 05:29] LABS: HCT (SEDRATE) 39.1 % (39.2-51.8)
[2020-06-02 05:32] LABS: BASOPHILS % (AUTO) 1 % (0-1); EOSINOPHILS % (AUTO) 3 % (1-7); LYMPHOCYTES % (AUTO) 35 % (22-44); MEAN CORPUSCULAR HEMOGLOBIN 31.3 pg (27.5-34.5); MEAN CORPUSCULAR HGB CONC 34.8 g/dL (33.2-36.2); MEAN PLATELET VOLUME 7.4 fL (7.4-10.4); MONOCYTES % (AUTO) 13 % (2-9); NEUTROPHILS % (AUTO) 48 % (42-75); PLATELET COUNT 218 x10^3/uL (130-400); RED BLOOD COUNT 4.43 x10^6/uL (4.38-5.82); RED CELL DISTRIBUTION WIDTH 13.2 % (9.4-14.8)
[2020-06-02 05:37] LABS: ALBUMIN 3.1 g/dL (3.4-5.0); C-REACTIVE PROTEIN, QUANT 0.29 mg/dL (0.02-0.49); CALCIUM 8.9 mg/dL (8.5-10.1)
[2020-06-02 05:40] LABS: ALANINE AMINOTRANSFERASE 28 U/L (12-78); ALKALINE PHOSPHATASE 62 U/L (45-117); BILIRUBIN,TOTAL 0.3 mg/dL (0.2-1.0); CREATININE 1.08 mg/dL (0.7-1.3)
[2020-06-02] MEDS: MORPHINE SULFATE 4 MG/ML, 1ML IVPush PRN ×3 (05:40→20:31)
[2020-06-02 05:41] LABS: MD NO
[2020-06-02 05:48] LABS: ANION GAP 3 mmol/L (5-15); CHLORIDE 108 mmol/L (98-107)
[2020-06-02 07:36] VITALS: BP 122/82
[2020-06-02] MEDS: ACETAMINOPHEN 325 MG TABLET PO PRN (07:50)
[2020-06-02] MEDS: BENZTROPINE 1 MG TABLET PO SCH ×2 (07:51→20:30)
[2020-06-02] MEDS: ARIPIPRAZOLE 15 MG TABLET PO SCH (07:51)
[2020-06-02] MEDS: NICOTINE 14MG/24 HR PATCH.TD24 TD SCH (08:02)
[2020-06-02] MEDS: LORazepam 1MG TABLET PO PRN (08:54)
[2020-06-02] MEDS: POLYETHYLENE GLYCOL 17 GM PACKET PO PRN (13:20)
[2020-06-02 13:24] VITALS: BP 116/76
[2020-06-02 19:13] VITALS: BP 146/89
[2020-06-02] MEDS: ONDANSETRON ODT 4 MG PO PRN (20:30)
[2020-06-02] MEDS: QUETIAPINE 100MG TABLET PO SCH (20:30)
[2020-06-03 01:06] VITALS: BP 141/90
[2020-06-03] MEDS: MORPHINE SULFATE 4 MG/ML, 1ML IVPush PRN ×3 (03:14→20:05)
[2020-06-03] MEDS: PIPERACILLIN/TAZO/PMX 3.375GM 50 ML IV SCH ×4 (03:14→20:49)
[2020-06-03 05:52] LABS: BASOPHILS % (AUTO) 1 % (0-1); EOSINOPHILS % (AUTO) 3 % (1-7); LYMPHOCYTES % (AUTO) 42 % (22-44); MEAN CORPUSCULAR HEMOGLOBIN 31.3 pg (27.5-34.5); MEAN CORPUSCULAR HGB CONC 35.4 g/dL (33.2-36.2); MEAN PLATELET VOLUME 7.2 fL (7.4-10.4); MONOCYTES % (AUTO) 12 % (2-9); NEUTROPHILS % (AUTO) 42 % (42-75); PLATELET COUNT 223 x10^3/uL (130-400); RED CELL DISTRIBUTION WIDTH 13.3 % (9.4-14.8)
[2020-06-03 05:54] LABS: MD NO
[2020-06-03 06:13] LABS: ANION GAP 6 mmol/L (5-15); CALCIUM 8.8 mg/dL (8.5-10.1); CHLORIDE 107 mmol/L (98-107); CREATININE 1.06 mg/dL (0.7-1.3)
[2020-06-03] MEDS ORDERED: BUPIVACAINE/PF-EPI 0.5% 1:200K ONE (07:03)
[2020-06-03] MEDS ORDERED: BACITRACIN OINT 500U/GM, 15 GM ONE (07:03)
[2020-06-03] MEDS ORDERED: BACITRACIN 50,000 UNIT ONE (07:03)
[2020-06-03 07:26] VITALS: BP 119/66
[2020-06-03] MEDS: BENZTROPINE 1 MG TABLET PO SCH ×3 (08:28→21:54)
[2020-06-03] MEDS: ARIPIPRAZOLE 15 MG TABLET PO SCH (08:28)
[2020-06-03] MEDS: NICOTINE 14MG/24 HR PATCH.TD24 TD SCH (08:29)
[2020-06-03] MEDS ORDERED: CHLORHEXIDINE 15 ML UDC MM STA (11:20)
[2020-06-03] MEDS: OXYcodone IR 5MG TABLET PO PRN ×3 (11:21→22:44)
[2020-06-03] MEDS ORDERED: MIDAZOLAM 1 MG/ML, 2ML ONE (11:46)
[2020-06-03] MEDS ORDERED: MEPERIDINE/PF 25MG/0.5ML IVPush PRN (13:00)
[2020-06-03] MEDS ORDERED: OXYcodone 5 MG/5 ML ORAL.SOL UDC PO PRN (13:00)
[2020-06-03] MEDS ORDERED: PROMETHAZINE 25 MG/ML, 1ML IV PRN (13:00)
[2020-06-03] MEDS ORDERED: ACETAMINOPHEN 325 MG TABLET PO PRN (13:00)
[2020-06-03] MEDS ORDERED: DIAZEPAM 5 MG/ML, 2ML IVPush PRN (13:00)
[2020-06-03] MEDS ORDERED: hydrALAzine 20 MG/ML, 1ML IV PRN (13:00)
[2020-06-03] MEDS ORDERED: HYDROmorphone 2 MG/ML, 1ML IVPush PRN (13:00)
[2020-06-03] MEDS ORDERED: ALBUTEROL SULFATE 2.5 MG/3 ML NPPB PRN (13:00)
[2020-06-03] MEDS ORDERED: LABETALOL 5MG/ML, 20ML IV PRN (13:00)
[2020-06-03] MEDS ORDERED: KETOROLAC 30 MG/1 ML IV PRN (13:00)
[2020-06-03] MEDS ORDERED: FENTANYL PF 100 MCG/2ML ONE ×3 (13:41→14:38)
[2020-06-03] MEDS: FENTANYL PF 100 MCG/2ML IV PRN ×3 (14:20→14:39)
[2020-06-03] MEDS ORDERED: KETOROLAC 30 MG/1 ML ONE (14:25)
[2020-06-03] MEDS ORDERED: SUCCINYLCHOLINE 20 MG/ML, 10ML ONE (14:26)
[2020-06-03] MEDS ORDERED: DEXAMETHASONE 4 MG/ML, 1ML ONE (14:26)
[2020-06-03] MEDS ORDERED: PROPOFOL 10 MG/ML, 20ML ONE (14:26)
[2020-06-03] MEDS ORDERED: GLYCOPYRROLATE 0.2MG/1ML, 5ML ONE (14:26)
[2020-06-03] MEDS ORDERED: NEOSTIGMINE 1 MG/ML, 10ML ONE (14:26)
[2020-06-03] MEDS ORDERED: CEFAZOLIN 1,000 MG ONE (14:26)
[2020-06-03] MEDS ORDERED: ONDANSETRON 2MG/ML, 2ML ONE (14:26)
[2020-06-03] MEDS ORDERED: ROCURONIUM 10MG/ML,5ML ONE (14:26)
[2020-06-03] MEDS ORDERED: ACETAMINOPHEN 650 MG/20.3 ML UDC ONE (14:32)
[2020-06-03] MEDS ORDERED: OXYcodone 5 MG/5 ML ORAL.SOL UDC ONE (14:32)
[2020-06-03 15:15] VITALS: BP 132/78
[2020-06-03 18:30] VITALS: BP 137/82
[2020-06-03] MEDS: ACETAMINOPHEN 325 MG TABLET PO PRN ×2 (18:39→22:48)
[2020-06-03] MEDS: QUETIAPINE 100MG TABLET PO SCH ×2 (21:00→21:54)
[2020-06-03 23:36] VITALS: BP 137/84
[2020-06-04] MEDS: LORazepam 1MG TABLET PO PRN ×2 (00:04→19:40)
[2020-06-04] MEDS: MORPHINE SULFATE 4 MG/ML, 1ML IVPush PRN ×2 (02:20→08:21)
[2020-06-04] MEDS: PIPERACILLIN/TAZO/PMX 3.375GM 50 ML IV SCH ×4 (02:22→20:41)
[2020-06-04 03:05] VITALS: BP 139/88
[2020-06-04 04:34] LABS: BASOPHILS % (AUTO) 0 % (0-1); EOSINOPHILS % (AUTO) 0 % (1-7); LYMPHOCYTES % (AUTO) 15 % (22-44); MEAN CORPUSCULAR HEMOGLOBIN 30.9 pg (27.5-34.5); MEAN CORPUSCULAR HGB CONC 34.8 g/dL (33.2-36.2); MEAN PLATELET VOLUME 7.4 fL (7.4-10.4); MONOCYTES % (AUTO) 9 % (2-9); NEUTROPHILS % (AUTO) 76 % (42-75); PLATELET COUNT 244 x10^3/uL (130-400); RED BLOOD COUNT 4.27 x10^6/uL (4.38-5.82); RED CELL DISTRIBUTION WIDTH 13.2 % (9.4-14.8)
[2020-06-04 04:36] LABS: MD NO
[2020-06-04 04:44] LABS: ANION GAP 5 mmol/L (5-15); CALCIUM 8.7 mg/dL (8.5-10.1); CHLORIDE 106 mmol/L (98-107); CREATININE 1.07 mg/dL (0.7-1.3)
[2020-06-04] MEDS: OXYcodone IR 5MG TABLET PO PRN ×4 (05:02→21:34)
[2020-06-04 08:10] VITALS: BP 151/94
[2020-06-04] MEDS: BENZTROPINE 1 MG TABLET PO SCH ×2 (08:20→20:41)
[2020-06-04] MEDS: ACETAMINOPHEN 325 MG TABLET PO PRN ×3 (08:20→21:34)
[2020-06-04] MEDS: ARIPIPRAZOLE 15 MG TABLET PO SCH (08:20)
[2020-06-04] MEDS: NICOTINE 14MG/24 HR PATCH.TD24 TD SCH (08:20)
[2020-06-04 13:55] VITALS: BP 125/79
[2020-06-04] MEDS: HYDROmorphone 2 MG/ML, 1ML IVPush PRN ×2 (14:49→19:29)
[2020-06-04 19:17] VITALS: BP 135/83
[2020-06-04] MEDS: QUETIAPINE 100MG TABLET PO SCH (20:41)
[2020-06-05] MEDS: ACETAMINOPHEN 325 MG TABLET PO PRN ×5 (02:23→22:16)
[2020-06-05] MEDS: OXYcodone IR 5MG TABLET PO PRN ×5 (02:24→22:16)
[2020-06-05] MEDS: PIPERACILLIN/TAZO/PMX 3.375GM 50 ML IV SCH ×4 (02:25→21:05)
[2020-06-05 02:37] VITALS: BP 138/93
[2020-06-05] MEDS: HYDROmorphone 2 MG/ML, 1ML IVPush PRN ×6 (05:28→20:10)
[2020-06-05 05:39] LABS: BASOPHILS % (AUTO) 1 % (0-1); EOSINOPHILS % (AUTO) 2 % (1-7); LYMPHOCYTES % (AUTO) 35 % (22-44); MEAN CORPUSCULAR HEMOGLOBIN 31.4 pg (27.5-34.5); MEAN CORPUSCULAR HGB CONC 34.9 g/dL (33.2-36.2); MEAN PLATELET VOLUME 7.3 fL (7.4-10.4); MONOCYTES % (AUTO) 9 % (2-9); NEUTROPHILS % (AUTO) 54 % (42-75); PLATELET COUNT 211 x10^3/uL (130-400); RED CELL DISTRIBUTION WIDTH 13.4 % (9.4-14.8)
[2020-06-05 05:46] LABS: ANION GAP 4 mmol/L (5-15); CALCIUM 8.1 mg/dL (8.5-10.1); CHLORIDE 110 mmol/L (98-107); CREATININE 1.09 mg/dL (0.7-1.3)
[2020-06-05 05:52] LABS: MD NO
[2020-06-05 06:15] VITALS: BP 125/83
[2020-06-05] MEDS: ARIPIPRAZOLE 15 MG TABLET PO SCH (07:50)
[2020-06-05] MEDS: NICOTINE 14MG/24 HR PATCH.TD24 TD SCH (07:51)
[2020-06-05] MEDS: BENZTROPINE 1 MG TABLET PO SCH ×2 (07:51→20:09)
[2020-06-05] MEDS: POLYETHYLENE GLYCOL 17 GM PACKET PO PRN (07:57)
[2020-06-05 12:10] VITALS: BP 136/94
[2020-06-05] MEDS: LORazepam 1MG TABLET PO PRN ×2 (15:48→22:16)
[2020-06-05 20:03] VITALS: BP 142/89
[2020-06-05] MEDS: QUETIAPINE 100MG TABLET PO SCH (20:09)
[2020-06-06 01:38] VITALS: BP 116/79
[2020-06-06] MEDS: HYDROmorphone 2 MG/ML, 1ML IVPush PRN ×5 (01:53→19:38)
[2020-06-06] MEDS: PIPERACILLIN/TAZO/PMX 3.375GM 50 ML IV SCH ×4 (02:27→21:09)
[2020-06-06] MEDS: ACETAMINOPHEN 325 MG TABLET PO PRN ×3 (06:24→19:34)
[2020-06-06] MEDS: OXYcodone IR 5MG TABLET PO PRN ×3 (06:25→19:35)
[2020-06-06] MEDS: BENZTROPINE 1 MG TABLET PO SCH ×2 (09:07→21:09)
[2020-06-06] MEDS: ARIPIPRAZOLE 15 MG TABLET PO SCH (09:07)
[2020-06-06] MEDS: NICOTINE 14MG/24 HR PATCH.TD24 TD SCH (09:08)
[2020-06-06 09:14] LABS: BASOPHILS % (AUTO) 1 % (0-1); EOSINOPHILS % (AUTO) 2 % (1-7); LYMPHOCYTES % (AUTO) 28 % (22-44); MEAN CORPUSCULAR HEMOGLOBIN 31.4 pg (27.5-34.5); MEAN CORPUSCULAR HGB CONC 35.7 g/dL (33.2-36.2); MEAN PLATELET VOLUME 7.1 fL (7.4-10.4); MONOCYTES % (AUTO) 11 % (2-9); NEUTROPHILS % (AUTO) 59 % (42-75); PLATELET COUNT 239 x10^3/uL (130-400); RED BLOOD COUNT 4.56 x10^6/uL (4.38-5.82); RED CELL DISTRIBUTION WIDTH 13.4 % (9.4-14.8)
[2020-06-06 09:20] LABS: MD NO
[2020-06-06 09:21] LABS: ANION GAP 6 mmol/L (5-15); CALCIUM 9.5 mg/dL (8.5-10.1); CHLORIDE 103 mmol/L (98-107)
[2020-06-06 09:23] LABS: CREATININE 0.99 mg/dL (0.7-1.3)
[2020-06-06 09:37] VITALS: BP 156/84
[2020-06-06] MEDS: LORazepam 1MG TABLET PO PRN (13:28)
[2020-06-06 15:59] VITALS: BP 124/87
[2020-06-06 19:15] VITALS: BP 116/73
[2020-06-06] MEDS: QUETIAPINE 100MG TABLET PO SCH (21:09)
[2020-06-07 02:23] VITALS: BP 116/79
[2020-06-07] MEDS: PIPERACILLIN/TAZO/PMX 3.375GM 50 ML IV SCH ×4 (02:52→20:56)
[2020-06-07] MEDS: HYDROmorphone 2 MG/ML, 1ML IVPush PRN ×2 (06:09→12:11)
[2020-06-07 07:15] VITALS: BP 124/91
[2020-06-07] MEDS: ACETAMINOPHEN 325 MG TABLET PO PRN ×2 (08:31→15:01)
[2020-06-07] MEDS: ARIPIPRAZOLE 15 MG TABLET PO SCH (08:31)
[2020-06-07] MEDS: BENZTROPINE 1 MG TABLET PO SCH ×2 (08:31→21:11)
[2020-06-07] MEDS: NICOTINE 14MG/24 HR PATCH.TD24 TD SCH (08:32)
[2020-06-07] MEDS: OXYcodone IR 5MG TABLET PO PRN ×3 (08:32→22:08)
[2020-06-07] MEDS: LORazepam 1MG TABLET PO PRN ×2 (08:56→22:08)
[2020-06-07 13:20] VITALS: BP 131/83
[2020-06-07 20:37] VITALS: BP 139/86
[2020-06-07] MEDS: QUETIAPINE 100MG TABLET PO SCH (21:10)
[2020-06-08 01:30] VITALS: BP 128/77
[2020-06-08] MEDS: PIPERACILLIN/TAZO/PMX 3.375GM 50 ML IV SCH ×5 (03:47→21:59)
[2020-06-08] MEDS: OXYcodone IR 5MG TABLET PO PRN ×3 (05:50→20:44)
[2020-06-08 08:06] VITALS: BP 127/91
[2020-06-08] MEDS: ARIPIPRAZOLE 15 MG TABLET PO SCH (08:20)
[2020-06-08] MEDS: BENZTROPINE 1 MG TABLET PO SCH ×2 (08:20→20:43)
[2020-06-08] MEDS: NICOTINE 14MG/24 HR PATCH.TD24 TD SCH (08:20)
[2020-06-08] MEDS ORDERED: KETOROLAC 30 MG/1 ML IVPush ONE (10:00)
[2020-06-08] MEDS: LORazepam 1MG TABLET PO PRN ×2 (13:06→20:52)
[2020-06-08 15:59] VITALS: BP 136/93
[2020-06-08 18:54] VITALS: BP 144/64
[2020-06-08] MEDS: ACETAMINOPHEN 325 MG TABLET PO PRN (19:37)
[2020-06-08] MEDS: QUETIAPINE 100MG TABLET PO SCH (20:44)
[2020-06-09 03:56] VITALS: BP 132/78
[2020-06-09] MEDS: PIPERACILLIN/TAZO/PMX 3.375GM 50 ML IV SCH ×4 (04:16→22:13)
[2020-06-09] MEDS: OXYcodone IR 5MG TABLET PO PRN ×3 (05:33→18:43)
[2020-06-09 06:26] LABS: BASOPHILS % (AUTO) 1 % (0-1); EOSINOPHILS % (AUTO) 3 % (1-7); LYMPHOCYTES % (AUTO) 34 % (22-44); MEAN CORPUSCULAR HEMOGLOBIN 31.1 pg (27.5-34.5); MEAN CORPUSCULAR HGB CONC 34.8 g/dL (33.2-36.2); MEAN PLATELET VOLUME 7.2 fL (7.4-10.4); MONOCYTES % (AUTO) 11 % (2-9); NEUTROPHILS % (AUTO) 52 % (42-75); PLATELET COUNT 244 x10^3/uL (130-400); RED BLOOD COUNT 4.57 x10^6/uL (4.38-5.82); RED CELL DISTRIBUTION WIDTH 13.4 % (9.4-14.8)
[2020-06-09 06:33] LABS: ALANINE AMINOTRANSFERASE 31 U/L (12-78); ALBUMIN 3.2 g/dL (3.4-5.0); ANION GAP 6 mmol/L (5-15); C-REACTIVE PROTEIN, QUANT 0.24 mg/dL (0.02-0.49); CALCIUM 8.5 mg/dL (8.5-10.1); CHLORIDE 112 mmol/L (98-107)
[2020-06-09 06:35] LABS: ALKALINE PHOSPHATASE 76 U/L (45-117); BILIRUBIN,TOTAL 0.3 mg/dL (0.2-1.0); TOTAL PROTEIN 6.4 g/dL (6.4-8.2)
[2020-06-09 06:41] LABS: HCT (SEDRATE) 40.7 % (39.2-51.8); MD NO
[2020-06-09 07:05] VITALS: BP 131/88
[2020-06-09] MEDS ORDERED: KETOROLAC 30 MG/1 ML ONE (08:52)
[2020-06-09] MEDS: KETOROLAC 30 MG/1 ML IVPush PRN ×2 (08:54→17:32)
[2020-06-09] MEDS: BENZTROPINE 1 MG TABLET PO SCH ×2 (08:55→21:16)
[2020-06-09] MEDS: ARIPIPRAZOLE 15 MG TABLET PO SCH (08:55)
[2020-06-09] MEDS: NICOTINE 14MG/24 HR PATCH.TD24 TD SCH (08:57)
[2020-06-09] MEDS: LORazepam 1MG TABLET PO PRN ×2 (10:11→18:43)
[2020-06-09] MEDS ORDERED: OXYcodone 5 MG/5 ML ORAL.SOL UDC ONE (12:52)
[2020-06-09 13:23] VITALS: BP 127/88
[2020-06-09 19:21] VITALS: BP 127/92
[2020-06-09] MEDS: QUETIAPINE 100MG TABLET PO SCH (21:16)
[2020-06-10 00:52] VITALS: BP 102/66
[2020-06-10] MEDS: OXYcodone IR 5MG TABLET PO PRN (03:10)
[2020-06-10] MEDS: PIPERACILLIN/TAZO/PMX 3.375GM 50 ML IV SCH ×4 (04:07→22:54)
[2020-06-10] MEDS: LORazepam 1MG TABLET PO PRN ×2 (04:07→14:55)
[2020-06-10 07:21] VITALS: BP 158/83
[2020-06-10] MEDS: KETOROLAC 30 MG/1 ML IVPush PRN ×3 (07:40→22:54)
[2020-06-10] MEDS: ARIPIPRAZOLE 15 MG TABLET PO SCH (08:24)
[2020-06-10] MEDS: NICOTINE 14MG/24 HR PATCH.TD24 TD SCH (08:24)
[2020-06-10] MEDS: BENZTROPINE 1 MG TABLET PO SCH ×2 (08:24→19:55)
[2020-06-10] MEDS ORDERED: IBUPROFEN 200 MG TABLET PO PRN (10:30)
[2020-06-10] MEDS ORDERED: SODIUM CHLORIDE 0.9% 1,000ML IVBOLUS ONE (10:30)
[2020-06-10 12:55] VITALS: BP 147/86
[2020-06-10] MEDS: QUETIAPINE 100MG TABLET PO SCH (19:55)
[2020-06-10 20:09] VITALS: BP 147/89
[2020-06-11 01:28] VITALS: BP 135/89
[2020-06-11] MEDS: KETOROLAC 30 MG/1 ML IVPush PRN ×2 (04:55→10:47)
[2020-06-11] MEDS: PIPERACILLIN/TAZO/PMX 3.375GM 50 ML IV SCH ×4 (04:55→23:01)
[2020-06-11 05:25] LABS: CHLORIDE 110 mmol/L (98-107)
[2020-06-11 05:37] LABS: ANION GAP 7 mmol/L (5-15); CALCIUM 8.4 mg/dL (8.5-10.1); CREATININE 0.87 mg/dL (0.7-1.3)
[2020-06-11 06:30] VITALS: BP 148/96
[2020-06-11] MEDS: ARIPIPRAZOLE 15 MG TABLET PO SCH (07:32)
[2020-06-11] MEDS: NICOTINE 14MG/24 HR PATCH.TD24 TD SCH (07:32)
[2020-06-11] MEDS: LORazepam 1MG TABLET PO PRN ×2 (07:32→16:04)
[2020-06-11] MEDS: BENZTROPINE 1 MG TABLET PO SCH ×2 (07:32→20:04)
[2020-06-11 12:50] VITALS: BP 147/93
[2020-06-11] MEDS ORDERED: ACETAMINOPHEN 500 MG TABLET ONE (14:13)
[2020-06-11] MEDS: KETOROLAC 30 MG/1 ML IVPush SCH ×2 (14:15→20:04)
[2020-06-11] MEDS: ACETAMINOPHEN 500 MG TABLET PO PRN ×2 (14:15→20:04)
[2020-06-11 19:15] VITALS: BP 161/97
[2020-06-11] MEDS: QUETIAPINE 100MG TABLET PO SCH (20:04)
[2020-06-12 01:42] VITALS: BP 146/96
[2020-06-12] MEDS: KETOROLAC 30 MG/1 ML IVPush SCH ×4 (02:03→19:58)
[2020-06-12] MEDS: ACETAMINOPHEN 500 MG TABLET PO PRN ×4 (02:03→19:56)
[2020-06-12] MEDS: PIPERACILLIN/TAZO/PMX 3.375GM 50 ML IV SCH ×4 (05:28→22:42)
[2020-06-12 06:50] VITALS: BP 130/85
[2020-06-12] MEDS: LORazepam 1MG TABLET PO PRN ×2 (08:14→16:16)
[2020-06-12] MEDS: NICOTINE 14MG/24 HR PATCH.TD24 TD SCH (08:14)
[2020-06-12] MEDS: BENZTROPINE 1 MG TABLET PO SCH ×2 (08:14→19:58)
[2020-06-12] MEDS: ARIPIPRAZOLE 15 MG TABLET PO SCH (09:53)
[2020-06-12] MEDS: GABAPENTIN 300 MG CAPSULE PO SCH ×2 (11:37→19:58)
[2020-06-12 14:10] VITALS: BP 145/91
[2020-06-12] MEDS: CARVEDILOL 3.125 MG TABLET PO SCH (16:51)
[2020-06-12 19:22] VITALS: BP 155/97
[2020-06-12] MEDS: QUETIAPINE 100MG TABLET PO SCH (20:59)
[2020-06-13 01:32] VITALS: BP 148/85
[2020-06-13] MEDS: KETOROLAC 30 MG/1 ML IVPush SCH ×4 (01:48→20:09)
[2020-06-13] MEDS: ACETAMINOPHEN 500 MG TABLET PO PRN ×4 (01:49→20:09)
[2020-06-13] MEDS: PIPERACILLIN/TAZO/PMX 3.375GM 50 ML IV SCH ×3 (05:25→17:54)
[2020-06-13] MEDS: CARVEDILOL 3.125 MG TABLET PO SCH ×2 (05:25→17:57)
[2020-06-13 08:04] VITALS: BP 122/72
[2020-06-13] MEDS: BENZTROPINE 1 MG TABLET PO SCH ×2 (08:06→21:14)
[2020-06-13] MEDS: ARIPIPRAZOLE 15 MG TABLET PO SCH (08:06)
[2020-06-13] MEDS: NICOTINE 14MG/24 HR PATCH.TD24 TD SCH (08:07)
[2020-06-13] MEDS: GABAPENTIN 300 MG CAPSULE PO SCH ×2 (08:07→21:14)
[2020-06-13] MEDS: LORazepam 1MG TABLET PO PRN ×2 (11:10→21:14)
[2020-06-13] MEDS ORDERED: LORazepam 2 MG/ML, 1ML IVPush ONE (11:30)
[2020-06-13 13:25] VITALS: BP 130/95
[2020-06-13] MEDS ORDERED: LORazepam 2 MG/ML, 1ML IVPush PRN (17:30)
[2020-06-13 20:01] VITALS: BP 147/94
[2020-06-13] MEDS: QUETIAPINE 100MG TABLET PO SCH (21:14)
[2020-06-14] MEDS: PIPERACILLIN/TAZO/PMX 3.375GM 50 ML IV SCH ×4 (00:06→18:32)
[2020-06-14 02:24] VITALS: BP 129/71
[2020-06-14] MEDS: KETOROLAC 30 MG/1 ML IVPush SCH ×4 (02:28→20:45)
[2020-06-14] MEDS: ACETAMINOPHEN 500 MG TABLET PO PRN ×4 (02:28→20:45)
[2020-06-14 05:57] VITALS: BP 147/84
[2020-06-14] MEDS: CARVEDILOL 3.125 MG TABLET PO SCH ×2 (05:59→18:37)
[2020-06-14] MEDS: ARIPIPRAZOLE 15 MG TABLET PO SCH (08:09)
[2020-06-14] MEDS: BENZTROPINE 1 MG TABLET PO SCH ×2 (08:09→20:45)
[2020-06-14] MEDS: GABAPENTIN 300 MG CAPSULE PO SCH ×2 (08:09→20:45)
[2020-06-14] MEDS: NICOTINE 14MG/24 HR PATCH.TD24 TD SCH (08:09)
[2020-06-14 08:26] VITALS: BP 135/83
[2020-06-14] MEDS ORDERED: LORazepam 2 MG/ML, 1ML IVPush PRN (10:30)
[2020-06-14 14:05] VITALS: BP 137/77
[2020-06-14 18:36] VITALS: BP 141/91
[2020-06-14] MEDS: QUETIAPINE 100MG TABLET PO SCH (20:45)
[2020-06-14] MEDS: LORazepam 1MG TABLET PO PRN (20:50)
[2020-06-15] MEDS: PIPERACILLIN/TAZO/PMX 3.375GM 50 ML IV SCH ×4 (00:02→18:26)
[2020-06-15 02:08] VITALS: BP 121/72
[2020-06-15] MEDS: LORazepam 1MG TABLET PO PRN ×2 (02:29→20:32)
[2020-06-15] MEDS: ACETAMINOPHEN 500 MG TABLET PO PRN ×4 (02:29→20:08)
[2020-06-15] MEDS: KETOROLAC 30 MG/1 ML IVPush SCH ×4 (02:29→20:08)
[2020-06-15] MEDS: CARVEDILOL 3.125 MG TABLET PO SCH ×2 (05:57→18:28)
[2020-06-15 07:35] VITALS: BP 121/83
[2020-06-15] MEDS: BENZTROPINE 1 MG TABLET PO SCH ×2 (08:31→20:09)
[2020-06-15] MEDS: GABAPENTIN 300 MG CAPSULE PO SCH ×2 (08:31→20:09)
[2020-06-15] MEDS: ARIPIPRAZOLE 15 MG TABLET PO SCH (08:32)
[2020-06-15] MEDS: NICOTINE 14MG/24 HR PATCH.TD24 TD SCH (08:32)
[2020-06-15 15:08] VITALS: BP 149/96
[2020-06-15 18:29] VITALS: BP 134/92
[2020-06-15] MEDS: QUETIAPINE 100MG TABLET PO SCH (20:09)
[2020-06-15 20:16] VITALS: BP 146/91
[2020-06-16] MEDS: PIPERACILLIN/TAZO/PMX 3.375GM 50 ML IV SCH ×4 (00:05→18:15)
[2020-06-16 01:40] VITALS: BP 121/71
[2020-06-16] MEDS: ACETAMINOPHEN 500 MG TABLET PO PRN ×4 (02:23→20:52)
[2020-06-16] MEDS: KETOROLAC 30 MG/1 ML IVPush SCH ×2 (02:23→08:41)
[2020-06-16 06:05] LABS: ALBUMIN 3.1 g/dL (3.4-5.0); ANION GAP 5 mmol/L (5-15); CALCIUM 8.9 mg/dL (8.5-10.1); CHLORIDE 107 mmol/L (98-107)
[2020-06-16 06:06] LABS: BASOPHILS % (AUTO) 0 % (0-1); EOSINOPHILS % (AUTO) 4 % (1-7); LYMPHOCYTES % (AUTO) 23 % (22-44); MEAN CORPUSCULAR HEMOGLOBIN 31.3 pg (27.5-34.5); MEAN CORPUSCULAR HGB CONC 35.2 g/dL (33.2-36.2); MONOCYTES % (AUTO) 19 % (2-9); NEUTROPHILS % (AUTO) 53 % (42-75); PLATELET COUNT 207 x10^3/uL (130-400); RED BLOOD COUNT 4.04 x10^6/uL (4.38-5.82); RED CELL DISTRIBUTION WIDTH 13.7 % (9.4-14.8)
[2020-06-16 06:14] LABS: ALANINE AMINOTRANSFERASE 36 U/L (12-78); ALKALINE PHOSPHATASE 80 U/L (45-117); BILIRUBIN,TOTAL 0.3 mg/dL (0.2-1.0); CREATININE 1.11 mg/dL (0.7-1.3); TOTAL PROTEIN 6.1 g/dL (6.4-8.2)
[2020-06-16] MEDS: CARVEDILOL 3.125 MG TABLET PO SCH ×2 (06:24→18:15)
[2020-06-16 06:28] LABS: MD NO
[2020-06-16 06:33] LABS: HCT (SEDRATE) 35.9 % (39.2-51.8)
[2020-06-16 07:23] VITALS: BP 132/90
[2020-06-16 07:57] LABS: FREE T4 (FREE THYROXINE) 0.79 ng/dL (0.76-1.46)
[2020-06-16] MEDS: DIAZEPAM 5 MG TABLET PO SCH ×2 (08:42→16:33)
[2020-06-16] MEDS: BENZTROPINE 1 MG TABLET PO SCH ×2 (08:42→20:52)
[2020-06-16] MEDS: ARIPIPRAZOLE 15 MG TABLET PO SCH (08:42)
[2020-06-16] MEDS: GABAPENTIN 300 MG CAPSULE PO SCH ×2 (08:42→20:52)
[2020-06-16] MEDS: NICOTINE 14MG/24 HR PATCH.TD24 TD SCH (08:43)
[2020-06-16] MEDS: LIDODERM 5% PATCH TD SCH (08:44)
[2020-06-16 12:37] VITALS: BP 143/95
[2020-06-16 18:14] VITALS: BP 129/89
[2020-06-16] MEDS: LORazepam 1MG TABLET PO PRN (20:52)
[2020-06-16] MEDS: QUETIAPINE 100MG TABLET PO SCH (20:52)
[2020-06-17] MEDS: PIPERACILLIN/TAZO/PMX 3.375GM 50 ML IV SCH ×4 (00:14→20:09)
[2020-06-17] MEDS: DIAZEPAM 5 MG TABLET PO SCH ×3 (00:20→17:58)
[2020-06-17 03:00] VITALS: BP 106/58
[2020-06-17] MEDS: ACETAMINOPHEN 500 MG TABLET PO PRN ×4 (03:28→22:04)
[2020-06-17] MEDS: LORazepam 1MG TABLET PO PRN ×3 (06:10→22:03)
[2020-06-17] MEDS: CARVEDILOL 3.125 MG TABLET PO SCH ×2 (06:10→17:58)
[2020-06-17 07:05] VITALS: BP 146/80
[2020-06-17] MEDS: ARIPIPRAZOLE 15 MG TABLET PO SCH (08:44)
[2020-06-17] MEDS: BENZTROPINE 1 MG TABLET PO SCH ×2 (08:44→22:03)
[2020-06-17] MEDS: GABAPENTIN 300 MG CAPSULE PO SCH ×2 (08:44→22:03)
[2020-06-17] MEDS: LIDODERM 5% PATCH TD SCH (08:46)
[2020-06-17] MEDS: NICOTINE 14MG/24 HR PATCH.TD24 TD SCH (08:47)
[2020-06-17] MEDS ORDERED: CARV3.1212 PO (14:54)
[2020-06-17] MEDS ORDERED: GABA300C PO (14:54)
[2020-06-17] MEDS ORDERED: PRED20TA PO (14:54)
[2020-06-17 15:00] VITALS: BP 137/89
[2020-06-17] MEDS ORDERED: TRIAMCINOLONE ACETONIDE 40 MG/ML, 1ML ONE (16:44)
[2020-06-17] MEDS ORDERED: LIDOCAINE 1%, 10ML ONE (16:45)
[2020-06-17] MEDS ORDERED: FENTANYL PF 100 MCG/2ML ONE (16:52)
[2020-06-17] MEDS ORDERED: NALOXONE 1 MG/ML, 2ML ONE (16:52)
[2020-06-17] MEDS ORDERED: OMNIPAQUE 300 MG/ML, 10ML VIAL ONE (17:56)
[2020-06-17 19:15] VITALS: BP 122/80
[2020-06-17] MEDS: QUETIAPINE 100MG TABLET PO SCH (22:03)
[2020-06-18 01:47] VITALS: BP 131/72
[2020-06-18] MEDS: PIPERACILLIN/TAZO/PMX 3.375GM 50 ML IV SCH (01:52)
[2020-06-18] MEDS: DIAZEPAM 5 MG TABLET PO SCH ×2 (01:52→09:34)
[2020-06-18] MEDS: LORazepam 1MG TABLET PO PRN (06:12)
[2020-06-18] MEDS: ACETAMINOPHEN 500 MG TABLET PO PRN (06:12)
[2020-06-18] MEDS: CARVEDILOL 3.125 MG TABLET PO SCH (06:13)
[2020-06-18 08:22] VITALS: BP 132/87
[2020-06-18] MEDS: BENZTROPINE 1 MG TABLET PO SCH (08:29)
[2020-06-18] MEDS: NICOTINE 14MG/24 HR PATCH.TD24 TD SCH (08:29)
[2020-06-18] MEDS: ARIPIPRAZOLE 15 MG TABLET PO SCH (08:29)
[2020-06-18] MEDS: LIDODERM 5% PATCH TD SCH (08:29)
[2020-06-18] MEDS: GABAPENTIN 300 MG CAPSULE PO SCH (08:29)
== END 2020-06-18 10:45 | disposition home or self-care (01) | DRG 711 ==
LOC: ED 07:59 → 4NE 11:35 → DCLOUNGE 06-18 10:22
PROVIDERS: ADMIT Hospitalist; ATTEND Hospitalist
PROC: 00P00MZ Removal of Neurostimulator Lead from Brain, Open Approach (ICD-10-PCS; principal; 2020-06-03 12:00)
DX: T85.731A Infection and inflammatory reaction due to implanted electronic neurostimulator of brain, electrode (lead), initial encounter (principal); F12.90 Cannabis use, unspecified, uncomplicated; F17.210 Nicotine dependence, cigarettes, uncomplicated; F20.0 Paranoid schizophrenia; F39 Unspecified mood [affective] disorder; G20 Parkinson's disease; I10 Essential (primary) hypertension; L03.313 Cellulitis of chest wall; M51.26 Other intervertebral disc displacement, lumbar region; M54.31 Sciatica, right side; B96.5 Pseudomonas (aeruginosa) (mallei) (pseudomallei) as the cause of diseases classified elsewhere; G25.0 Essential tremor; Z45.42 Encounter for adjustment and management of neurostimulator; Z91.19 Patient's noncompliance with other medical treatment and regimen; Z98.1 Arthrodesis status; Y92.89 Other specified places as the place of occurrence of the external cause
CPT/HCPCS: 36415; 62323; 71045; 71260; 72148; 80048; 80053; 80202; 82040; 83605; 84439; 84443; 84481; 85025; 85651; 86140; 87040; 87070; 87075; 87077; 87186; 87205; 87635; 93005; 96365; 96375; 99285; G0378; J0295; J0690; J1100; J1170; J1885; J2250; J2405; J2543; J2704; J2710; J3010; J3301; J3370; Q0162; Q9967; J0330; J2270; J2310; J7030; J7050; J7512

== ENCOUNTER 2020-06-19 15:47 | Emergency (ER) | payer MEDICAID, OTHER ==
[~2020-06-19] VITALS: Ht 182.9 cm; Wt 75.9 kg
[~2020-06-19 15:47] MED LIST changes: +ARIP15TA3 PO; +CARV3.1212 PO; +GABA300C PO; +PRED20TA PO; +cogentin PO
[2020-06-19 16:07] VITALS: BP 138/98
--- NOTE | 2020-06-19 17:58 | NUR ---
BANQUET SERVER: NOT IN LOBBY
--- NOTE | 2020-06-19 19:00 | NUR ---
drywall hanger helper: not in lobby
--- NOTE | 2020-06-19 19:15 | NUR ---
NATURAL RESOURCES INSTRUCTOR: NOT IN LOBBY
== END 2020-06-19 19:17 | disposition left against medical advice (07) ==
LOC: ED 19:00
DX: M79.604 Pain in right leg (principal); Z53.21 Procedure and treatment not carried out due to patient leaving prior to being seen by health care provider
CPT/HCPCS: 93005

== ENCOUNTER 2020-09-29 17:14 | Emergency (ER) | payer MEDICAID ==
[~2020-09-29] VITALS: Ht 182.9 cm; Wt 68.1 kg
[2020-09-29 17:20] VITALS: BP 128/90
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
== END 2020-09-29 18:03 | disposition left against medical advice (07) ==
LOC: ED 17:46
DX: R45.851 Suicidal ideations (principal); Z53.21 Procedure and treatment not carried out due to patient leaving prior to being seen by health care provider

== ENCOUNTER 2020-09-30 05:11 | Emergency (ER) | payer MEDICAID ==
[~2020-09-30] VITALS: Ht 185.4 cm; Wt 68.9 kg
[2020-09-30] MEDS ORDERED: HALOPERIDOL 5 MG/ML IVPush ONE (06:00)
[2020-09-30] MEDS ORDERED: LORazepam 1MG TABLET PO ONE (06:00)
[2020-09-30] MEDS ORDERED: LORazepam 2 MG/ML, 1ML IVPush ONE (06:00)
[2020-09-30] MEDS ORDERED: HALOPERIDOL 5 MG/ML IM ONE (06:00)
[2020-09-30] MEDS ORDERED: LORazepam 1MG TABLET ONE (06:04)
[2020-09-30] MEDS ORDERED: HALOPERIDOL 5 MG/ML ONE (06:04)
[2020-09-30 06:17] LABS: ALBUMIN 3.2 g/dL (3.4-5.0); ANION GAP 8 mmol/L (5-15); CHLORIDE 105 mmol/L (98-107); CREATININE 0.77 mg/dL (0.7-1.3); SALICYLATE LEVEL 3.8 mg/dL (2.8-20.0)
[2020-09-30 06:22] LABS: ALANINE AMINOTRANSFERASE 47 U/L (12-78); ALKALINE PHOSPHATASE 94 U/L (45-117); BILIRUBIN,TOTAL 0.6 mg/dL (0.2-1.0); TOTAL PROTEIN 6.1 g/dL (6.4-8.2)
[2020-09-30 06:27] LABS: BASOPHILS % (AUTO) 1 % (0-1); EOSINOPHILS % (AUTO) 1 % (1-7); LYMPHOCYTES % (AUTO) 40 % (22-44); MEAN CORPUSCULAR HEMOGLOBIN 33.5 pg (27.5-34.5); MEAN CORPUSCULAR HGB CONC 35.4 g/dL (33.2-36.2); MEAN PLATELET VOLUME 6.5 fL (7.4-10.4); MONOCYTES % (AUTO) 14 % (2-9); NEUTROPHILS % (AUTO) 44 % (42-75); PLATELET COUNT 300 x10^3/uL (130-400); RED BLOOD COUNT 4.54 x10^6/uL (4.38-5.82); RED CELL DISTRIBUTION WIDTH 16.1 % (9.4-14.8)
--- NOTE | 2020-09-30 06:33 | NUR ---
pt presents with c/o of si. states he his in an unhealthy relationship with his gf who is an alcoholic. plan is to overdose on heroin. pt in secured room with all belongings removed and placed into psych locker. pt is calm and cooperative with me. pt accepted medications. pt tearful about depressive feelings. states he normally takes abilify for his schizophrenia but has not been compliant with meds. no sitter available, one requested from [facility]athouse keeper. Q15 min saftely checks initiated by me. urine sent.
[2020-09-30 06:46] LABS: AMPHETAMINE SCREEN, URINE Positive (Negative); BARBITURATE SCREEN, URINE Negative (Negative); BENZODIAZEPINE SCREEN, URINE Negative (Negative); CANNABINOID SCREEN, URINE Positive (Negative); COCAINE SCREEN, URINE Negative (Negative); METHADONE SCREEN, URINE Negative (Negative); OPIATE SCREEN, URINE Negative (Negative)
--- NOTE | 2020-09-30 06:48 | NUR ---
sitter now available and at bedside for frequent checks on pt.
--- NOTE | 2020-09-30 06:56 | NUR ---
ASSUMING CARE OF PATIENT AFTER BEDSIDE REPORT FROM [facility]. PT ASLEEP WITH EVEN AND UNLABORED RESPIRATIONS. SITTER AT BEDSIDE. SAFTEY PRECAUTIONS IN PLACE.
--- NOTE | 2020-09-30 06:58 | NUR ---
REPORT TO JAMSHID BOLDEN
[2020-09-30] MEDS ORDERED: POTASSIUM CHLORIDE 20 MEQ PACKET PO ONE (07:00)
[2020-09-30] MEDS ORDERED: POTASSIUM CHLORIDE 20 MEQ PACKET ONE (08:30)
--- NOTE | 2020-09-30 08:38 | NUR ---
PT ASLEEP WITH EVEN AND UNLABORED REPSIRATIONS.
--- NOTE | 2020-09-30 08:55 | NUR ---
PT MEDICATED PER EMAR AND GIVEN BREAKFAST TRAY BEFORE PT DRIFTING BACK TO SLEEP WITH EVEN AND UNLABORES RESPIRATIONS. SITTER AT BEDSIDE. SAFTEY PRECAUTIONS IN PLACE.
--- NOTE | 2020-09-30 09:23 | NUR ---
PT ASLEEP WITH EVEN AND UNLABORED RESPIRATIONS. SITTER AT BEDSIDE. SAFTEY PRECAUTIONS IN PLACE. KARI.
--- NOTE | 2020-09-30 10:49 | NUR ---
pt asleep with even and unlabored respirations. vss. nadn. sitter at bedside. safety precautions in place.
--- NOTE | 2020-09-30 11:19 | NUR ---
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
--- NOTE | 2020-09-30 12:24 | NUR ---
PT ASLEEP WITH EVEN AND UNLABORED RESPIRATIONS. SITTER AT BEDSIDE. SAFTEY PRECAUTIONS IN PLACE
[2020-09-30] MEDS ORDERED: ARIPIPRAZOLE 10 MG TABLET ONE (12:36)
--- NOTE | 2020-09-30 13:37 | NUR ---
pt asleep with even and unlabored respirations. vss. nadn. sitter at bedside. safety recautions in place.
[2020-09-30 13:38] VITALS: BP 112/82
--- NOTE | 2020-09-30 15:22 | NUR ---
REPORT CALLED TO ARTUR
--- NOTE | 2020-09-30 15:51 | NUR ---
PT TRANSFER TO [facility] VIA GURNEY WITH ALL BELONGINGS.
[2020-10-01] MEDS ORDERED: ARIPIPRAZOLE 10 MG TABLET PO SCH (09:00)
[2020-10-01] MEDS ORDERED: QUET100T4 PO (17:39)
[2020-10-01] MEDS ORDERED: ARIP300S IM (17:39)
[2020-10-01] MEDS ORDERED: BENZ1TAB61 PO (17:39)
== END 2020-09-30 15:51 ==
LOC: ED 06:33 → EDIP 13:22 → UNDOADMOB 13:22 → ED 15:51
DX: F20.9 Schizophrenia, unspecified (principal); Z20.822 Contact with and (suspected) exposure to COVID-19; R45.851 Suicidal ideations; F15.10 Other stimulant abuse, uncomplicated; I10 Essential (primary) hypertension
CPT/HCPCS: 36415; 80053; 80299; 80307; 80320; 80329; 85025; 87426; 96372; 99284; J1630; G0480

== ENCOUNTER 2020-09-30 12:48 | Inpatient (IN) | payer MEDICAID ==
[~2020-09-30] VITALS: Ht 182.9 cm; Wt 71.6 kg
[2020-09-30] MEDS ORDERED: DOCUSATE 100 MG CAPSULE PO PRN (13:30)
[2020-09-30] MEDS ORDERED: BISACODYL 10 MG SUPP PR PRN (13:30)
[2020-09-30] MEDS ORDERED: ONDANSETRON ODT 4 MG PO PRN (13:30)
[2020-09-30] MEDS ORDERED: POLYETHYLENE GLYCOL 17 GM PACKET PO PRN (13:30)
[2020-09-30 17:07] VITALS: BP 155/95
[2020-09-30] MEDS ORDERED: THIAMINE 100MG TABLET PO ONE (18:00)
[2020-09-30] MEDS ORDERED: FOLIC ACID 1 MG TABLET PO ONE (18:00)
[2020-09-30] MEDS: LORazepam 1MG TABLET PO PRN (18:29)
[2020-09-30 20:00] VITALS: BP 154/96
[2020-09-30] MEDS: LORazepam 1MG TABLET PO SCH (20:56)
[2020-10-01] MEDS: ACETAMINOPHEN 325 MG TABLET PO PRN ×2 (01:38→20:49)
[2020-10-01] MEDS: LORazepam 1MG TABLET PO PRN (01:38)
[2020-10-01 03:42] LABS: FREE T4 (FREE THYROXINE) 1.14 ng/dL (0.76-1.46); LDL/HDL RATIO 1.4 (0.5-3.0)
[2020-10-01] MEDS: LORazepam 1MG TABLET PO SCH ×4 (06:29→20:49)
[2020-10-01 07:32] VITALS: BP 134/87
[2020-10-01] MEDS: NICOTINE 21 MG/24 HR PATCH.TD24 TD SCH (09:15)
[2020-10-01] MEDS: DIVALPROEX 500 MG TABLET.DR PO SCH ×2 (17:12→20:49)
[2020-10-01] MEDS ORDERED: QUET100T4 PO (17:39)
[2020-10-01] MEDS ORDERED: BENZ1TAB61 PO (17:39)
[2020-10-01] MEDS ORDERED: ARIP300S IM (17:39)
[2020-10-01] MEDS ORDERED: CARVEDILOL 3.125 MG TABLET PO SCH ×2 (18:00→21:00)
[2020-10-01 19:18] VITALS: BP 134/78
[2020-10-01] MEDS ORDERED: GABAPENTIN 300 MG CAPSULE PO SCH (21:00)
[2020-10-02] MEDS: LORazepam 1MG TABLET PO SCH ×4 (06:07→21:01)
[2020-10-02 07:39] VITALS: BP 153/81
[2020-10-02] MEDS: DIVALPROEX 500 MG TABLET.DR PO SCH (08:14)
[2020-10-02] MEDS: NICOTINE 21 MG/24 HR PATCH.TD24 TD SCH (08:42)
[2020-10-02] MEDS ORDERED: ARIPIPRAZOLE 400 MG INJ NC IM ONE (09:00)
[2020-10-02 12:13] LABS: MICROSCOPIC NOT IND
[2020-10-02 20:00] VITALS: BP 143/84
[2020-10-02] MEDS: BENZTROPINE 1 MG TABLET PO SCH (21:01)
[2020-10-02] MEDS: QUETIAPINE 25MG TABLET PO SCH (21:01)
[2020-10-03] MEDS: LORazepam 1MG TABLET PO SCH ×2 (05:55→11:00)
[2020-10-03 07:26] VITALS: BP 151/94
[2020-10-03] MEDS: QUETIAPINE 25MG TABLET PO SCH ×2 (09:09→20:43)
[2020-10-03] MEDS: BENZTROPINE 1 MG TABLET PO SCH ×2 (09:09→20:43)
[2020-10-03] MEDS: NICOTINE 21 MG/24 HR PATCH.TD24 TD SCH (09:09)
[2020-10-03] MEDS ORDERED: ARIPIPRAZOLE 400 MG INJ NC IM ONE (10:00)
[2020-10-03 14:48] VITALS: BP 145/91
[2020-10-03] MEDS: LORazepam 1MG TABLET PO PRN ×2 (14:48→20:43)
[2020-10-03 19:16] VITALS: BP 135/85
[2020-10-04 07:58] VITALS: BP 146/101
[2020-10-04] MEDS: LORazepam 1MG TABLET PO PRN ×2 (08:11→19:39)
[2020-10-04] MEDS: BENZTROPINE 1 MG TABLET PO SCH ×2 (08:11→20:41)
[2020-10-04] MEDS: QUETIAPINE 25MG TABLET PO SCH ×2 (08:12→20:41)
[2020-10-04 09:32] VITALS: BP 136/80
[2020-10-04] MEDS: NICOTINE 21 MG/24 HR PATCH.TD24 TD SCH (09:46)
[2020-10-04 19:22] VITALS: BP 123/92
[2020-10-05 07:45] VITALS: BP 129/87
[2020-10-05] MEDS: BENZTROPINE 1 MG TABLET PO SCH ×2 (08:51→20:55)
[2020-10-05] MEDS: QUETIAPINE 25MG TABLET PO SCH ×2 (08:52→20:55)
[2020-10-05] MEDS: NICOTINE 21 MG/24 HR PATCH.TD24 TD SCH (08:52)
[2020-10-05] MEDS: LORazepam 1MG TABLET PO PRN ×3 (09:37→20:55)
[2020-10-05 19:27] VITALS: BP 133/90
[2020-10-05] MEDS ORDERED: QUET25TA7 PO (21:24)
[2020-10-05] MEDS ORDERED: BENZ1TAB61 PO (21:24)
[2020-10-05] MEDS ORDERED: NICO-587 TD (21:24)
[2020-10-05] MEDS ORDERED: ARIP400S3 IM (21:24)
[2020-10-05] MEDS ORDERED: QUETIAPINE 25MG TABLET PO ONE (22:00)
[2020-10-06 07:28] VITALS: BP 136/85
[2020-10-06] MEDS: NICOTINE 21 MG/24 HR PATCH.TD24 TD SCH (08:12)
[2020-10-06] MEDS: BENZTROPINE 1 MG TABLET PO SCH (08:13)
[2020-10-06] MEDS ORDERED: HYDROXYZINE PAMOATE 50MG CAP PO ONE (08:30)
[2020-10-06] MEDS ORDERED: QUETIAPINE 25MG TABLET PO SCH (09:00)
== END 2020-10-06 09:20 | disposition home or self-care (01) | DRG 885 ==
LOC: 3E 15:47
PROVIDERS: ADMIT Psychiatry & Neurology Psychosomatic Medicine; ATTEND Psychiatry & Neurology Psychosomatic Medicine
DX: F31.30 Bipolar disorder, current episode depressed, mild or moderate severity, unspecified (principal); R45.851 Suicidal ideations; F15.20 Other stimulant dependence, uncomplicated; F17.210 Nicotine dependence, cigarettes, uncomplicated; F20.9 Schizophrenia, unspecified; F10.20 Alcohol dependence, uncomplicated; F12.10 Cannabis abuse, uncomplicated; F41.9 Anxiety disorder, unspecified; G20 Parkinson's disease; I10 Essential (primary) hypertension; Z98.1 Arthrodesis status
CPT/HCPCS: 36415; 71045; 80061; 81003; 84439; 84443; 93005

== ENCOUNTER 2020-10-07 01:22 | Emergency (ER) | payer MEDICAID ==
[~2020-10-07] VITALS: Ht 185.4 cm; Wt 72.0 kg
[~2020-10-07 01:22] MED LIST changes: +ARIP300S IM; +ARIP400S3 IM; +BENZ1TAB61 PO; +NICO-587 TD; +QUET25TA7 PO
[2020-10-07 02:03] VITALS: BP 130/91
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
[2020-10-07] MEDS ORDERED: LORazepam 1MG TABLET PO ONE (02:30)
--- NOTE | 2020-10-07 02:57 | NUR ---
PT ELOPED. PT WAS SCREAMING AND YELLING AT STAFF. PT STATING HE DOESNT WANT ANYMORE HELP. THIS NURSE TOLD PT BENEFITS AND RISKS OF STAYING AND LEAVING. PT REFUSED TO SIGN AMA FORM. PT REFUSED MEDS AND DC INSTRUCTIONS. PT STORMED OUT OF ER IGNORING ALL STAFF.
== END 2020-10-07 03:00 | disposition left against medical advice (07) ==
LOC: ED 02:55
DX: F41.1 Generalized anxiety disorder (principal); F15.10 Other stimulant abuse, uncomplicated; F17.210 Nicotine dependence, cigarettes, uncomplicated; F32.9 Major depressive disorder, single episode, unspecified; I10 Essential (primary) hypertension; F20.9 Schizophrenia, unspecified
CPT/HCPCS: 99283; 99406

== ENCOUNTER 2020-11-11 07:13 | Emergency (ER) | payer MEDICAID ==
[~2020-11-11] VITALS: Ht 182.9 cm; Wt 86.0 kg
[2020-11-11 07:29] VITALS: BP 138/88
--- NOTE | 2020-11-11 07:29 | NUR ---
PT OUTSIDE SMOKING
--- NOTE | 2020-11-11 07:53 | NUR ---
PT BROUGHT BACK FROM TRIAGE WITH CHIEF COMPLAINT OF BUG BITE TO LEFT LEG.
--- NOTE | 2020-11-11 08:37 | NUR ---
CARE FOR DC ONLY PROVIDED. PT LAYING ON GURNEY, NO ACUTE DISTRESS NOTED. NO IV TOP DC. REVIEWED DC INSTERUCTIONS WITH PT. UNDERSTANDING VERBALIZED. PT LEFT AMB, GAIT STEADY.
== END 2020-11-11 08:40 | disposition home or self-care (01) ==
LOC: ED 07:18
DX: L03.116 Cellulitis of left lower limb (principal); R00.0 Tachycardia, unspecified
CPT/HCPCS: 99283

== ENCOUNTER 2020-11-15 14:19 | Emergency (ER) | payer MEDICAID ==
[~2020-11-15] VITALS: Ht 182.9 cm; Wt 89.2 kg
[2020-11-15] MEDS ORDERED: HYDROcodone/APAP 5/325 TABLET PO PRN (15:00)
[2020-11-15] MEDS ORDERED: HYDROcodone/APAP 5/325 TABLET ONE (15:03)
--- NOTE | 2020-11-15 15:15 | NUR ---
PT HAS SMALL BITE WOUND ON L LOWER LEG WITH MILD/MODERATE REDNESS & SWELLING AROUND CALF. MEDICATED FOR PAIN. US BEING DONE AT BS.
[2020-11-15 15:20] LABS: BASOPHILS % (AUTO) 1 % (0-1); EOSINOPHILS % (AUTO) 3 % (1-7); LYMPHOCYTES % (AUTO) 31 % (22-44); MEAN CORPUSCULAR HEMOGLOBIN 33.5 pg (27.5-34.5); MEAN CORPUSCULAR HGB CONC 35.6 g/dL (33.2-36.2); MONOCYTES % (AUTO) 12 % (2-9); NEUTROPHILS % (AUTO) 52 % (42-75); PLATELET COUNT 270 x10^3/uL (130-400); RED BLOOD COUNT 4.46 x10^6/uL (4.38-5.82); RED CELL DISTRIBUTION WIDTH 13.6 % (9.4-14.8)
[2020-11-15 15:28] LABS: ALBUMIN 3.4 g/dL (3.4-5.0); ANION GAP 6 mmol/L (5-15); CALCIUM 8.9 mg/dL (8.5-10.1); CHLORIDE 106 mmol/L (98-107); CREATININE 1.01 mg/dL (0.7-1.3)
[2020-11-15] MEDS ORDERED: FUROSEMIDE 20 MG TABLET PO ONE (16:00)
[2020-11-15] MEDS ORDERED: FUROSEMIDE 20 MG TABLET ONE (16:52)
[2020-11-15 17:00] VITALS: BP 146/90
--- NOTE | 2020-11-15 17:07 | NUR ---
PT MEDICATED PER ORDERS. D/C INSTRUCTIONS, MEDS & F/U APPT'S RV'WD WITH PT, HE VERBALIZES UNDERSTANDING. RX GIVEN X4. INSTRUCTED TO RETURN TO ED FOR WORSENING PAIN, SWELLING, FEVER, OR OTHER CONCERNING SYMPTOMS. PT AMBULATED OUT OF ED WITHOUT DIFFICULTY.
== END 2020-11-15 17:07 | disposition home or self-care (01) ==
LOC: ED 16:45
DX: M79.672 Pain in left foot (principal); M25.572 Pain in left ankle and joints of left foot; R60.0 Localized edema; M54.42 Lumbago with sciatica, left side; I10 Essential (primary) hypertension; G20 Parkinson's disease; F17.200 Nicotine dependence, unspecified, uncomplicated
CPT/HCPCS: 36415; 80048; 82040; 85025; 99284

== ENCOUNTER 2020-11-17 15:44 | Emergency (ER) | payer MEDICAID ==
[~2020-11-17] VITALS: Ht 182.9 cm; Wt 88.0 kg
--- NOTE | 2020-11-17 15:54 | NUR ---
was prescribed keflex 11/11 and bactrim 11/15 w no relief. sts redness and swelling getting worse. as
[2020-11-17 16:15] LABS: BASOPHILS % (AUTO) 1 % (0-1); EOSINOPHILS % (AUTO) 3 % (1-7); LYMPHOCYTES % (AUTO) 20 % (22-44); MEAN CORPUSCULAR HEMOGLOBIN 32.5 pg (27.5-34.5); MEAN CORPUSCULAR HGB CONC 34.4 g/dL (33.2-36.2); MONOCYTES % (AUTO) 10 % (2-9); NEUTROPHILS % (AUTO) 65 % (42-75); PLATELET COUNT 274 x10^3/uL (130-400); RED BLOOD COUNT 4.47 x10^6/uL (4.38-5.82); RED CELL DISTRIBUTION WIDTH 13.4 % (9.4-14.8)
[2020-11-17 16:27] LABS: ALBUMIN 3.2 g/dL (3.4-5.0); ANION GAP 6 mmol/L (5-15); CALCIUM 8.9 mg/dL (8.5-10.1); CHLORIDE 104 mmol/L (98-107); CREATININE 1.17 mg/dL (0.7-1.3)
[2020-11-17] MEDS ORDERED: SODIUM CHLORIDE 0.9% 1,000ML IVBOLUS ONE (16:30)
[2020-11-17 16:54] VITALS: BP 124/74
== END 2020-11-17 16:56 | disposition home or self-care (01) ==
LOC: ED 16:14
DX: L03.116 Cellulitis of left lower limb (principal); F17.210 Nicotine dependence, cigarettes, uncomplicated; R00.0 Tachycardia, unspecified; Z87.891 Personal history of nicotine dependence
CPT/HCPCS: 36415; 80048; 82040; 85025; 96360; 99283; 99406; J7030

== ENCOUNTER 2020-11-21 20:25 | Emergency (ER) | payer MEDICAID ==
[~2020-11-21 20:25] MED LIST changes: +OXYC1TAB12 PO; -OXYC1TAB14 PO
--- NOTE | 2020-11-21 20:56 | NUR ---
NIL X1
--- NOTE | 2020-11-21 21:06 | NUR ---
nil x 2
--- NOTE | 2020-11-21 21:15 | NUR ---
NILX 3
== END 2020-11-21 21:17 | disposition left against medical advice (07) ==
LOC: ED 21:00
DX: M79.89 Other specified soft tissue disorders (principal); Z53.21 Procedure and treatment not carried out due to patient leaving prior to being seen by health care provider

== ENCOUNTER → 2020-12-19 | Outpatient (CLI) | payer MEDICAID | END | disposition home or self-care (01) | LOC: RAD 16:07 | PROVIDERS: ATTEND Nurse Practitioner Family | DX: M17.0 Bilateral primary osteoarthritis of knee (principal) | CPT/HCPCS: 73565 ==

== ENCOUNTER 2020-12-21 15:20 | Emergency (ER) | payer MEDICAID ==
[~2020-12-21] VITALS: Ht 182.9 cm; Wt 90.8 kg
[2020-12-21 15:24] VITALS: BP 149/93
== END 2020-12-21 16:14 | disposition left against medical advice (07) ==
LOC: ED 15:25
DX: M79.672 Pain in left foot (principal); Z53.21 Procedure and treatment not carried out due to patient leaving prior to being seen by health care provider